=== PATIENT | male | born 1965 | race Caucasian/White ===

== ENCOUNTER 2020-05-22 17:43 | Inpatient (IN) | payer MEDICAID ==
[2020-05-22] MEDS ORDERED: Docusate Sodium 100 MG Cap PO PRN (18:16)
[2020-05-22] MEDS ORDERED: Diclofenac Sodium 1% Gel 100 GM Tube TOP PRN (18:16)
[2020-05-22] MEDS ORDERED: Sodium Chloride 0.9% 10 ML Syringe FLUSH PRN (18:18)
[2020-05-22] MEDS ORDERED: Ondansetron 4 MG/2 ML SDV IV PRN (18:18)
[2020-05-22] MEDS ORDERED: Magnesium Hydroxide 400 MG/5 ML Susp 30 ML Cup PO PRN (18:18)
[2020-05-22] MEDS ORDERED: Benzonatate 100 MG Cap PO PRN (18:18)
[2020-05-22] MEDS ORDERED: Ondansetron 4 MG Tab.DIS PO PRN (18:18)
[2020-05-22] MEDS ORDERED: LORazepam 2 MG/ML SDV IVPUSH PRN (18:18)
[2020-05-22] MEDS ORDERED: guaiFENesin/Dextromethorphan 100-10 MG/5 ML Soln 10 ML Cup PO PRN (18:18)
--- NOTE | 2020-05-22 18:29 | PCM.HP.2 ---
H&P History of Present Illness - General Date of Service: 05/22/20 Admit Problem/Dx: Admission Diagnosis/Problem Admission Diagnosis/Problem Pneumonia Source of Information: Patient, Family, RN Notes Reviewed - History of Present Illness Initial Comments - Free Text/Narative: CC: I have such a bad headache HPI: Favian presents as a direct admission from [facility]. He has been there since 08 May receiving treatment for both alcohol and methamphetamine abuse. He tested positive for Covid on May 17 after he developed headache, low-grade fever and cough. Over the past several days he has had a slow progression of symptoms. He has had a nearly constant headache with some ups and downs. This is a moderate diffuse achy pain in his head that does get better after Tylenol and ibuprofen. Coughing makes his headache much worse. He has an occasional dry cough. He does not feel short of breath at rest but gets short of breath with any activity. He has not had nausea but has had some diarrhea. He has significant fatigue and poor appetite. He has diffuse arthralgias but no report of myalgias. No abdominal pain unless he is coughing. No edema or rashes. Presumed sick contact was at the [facility]. This afternoon he was noted to be hypoxic with oxygen saturations in the mid to upper 80s on room air. He was sent for management of Covid pneumonia with hypoxic respiratory failure. - Related Data Allergies/Adverse Reactions: Allergies Allergy/AdvReac Type Severity Reaction Status Date / Time No Known Allergies Allergy Verified 05/22/20 18:06 Home Medications: Home Meds Acetaminophen [Acetaminophen Extra Strength] 500 - 1,000 mg PO ASDIRECTED PRN 05/22/20 [History] Acetylcysteine [Nac] 600 mg PO DAILY 05/22/20 [History] Cetirizine HCl 10 mg PO DAILY 05/22/20 [History] Cholecalciferol (Vitamin D3) [Vitamin D3] 250 mcg PO DAILY 05/22/20 [History] Diclofenac Sodium [Voltaren 1% Gel] 2 inch TOP BID PRN 05/22/20 [History] Docusate Sodium 100 mg PO BID PRN 05/22/20 [History] Doxepin [SINEquan] 50 mg PO BEDTIME 05/22/20 [History] Doxycycline Hyclate 100 mg PO BID 05/22/20 [History] Ibuprofen 200 - 400 mg PO ASDIRECTED PRN 05/22/20 [History] [place] Carbonate [[place] Carbonate ER] 450 mg PO DAILY 05/22/20 [History] Losartan [Cozaar] 100 mg PO DAILY 05/22/20 [History] Oxybutynin Chloride [Oxybutynin Chloride ER] 10 mg PO DAILY 05/22/20 [History] Tamsulosin HCl 0.4 mg PO DAILY 05/22/20 [History] Venlafaxine HCl [Venlafaxine ER] 300 mg PO DAILY 05/22/20 [History] Zinc 50 mg PO DAILY 05/22/20 [History] rOPINIRole [Requip] 2 mg PO BEDTIME 05/22/20 [History] risperiDONE [Risperidone] 1 mg PO BEDTIME 05/22/20 [History] Past Medical History Cardiovascular History: Reports: Hypertension Genitourinary History: Reports: BPH Psychiatric History: Reports: Depression, Suicide Attempt - Past Surgical History GI Surgical History: Reports: Cholecystectomy, Other (See Below) (splenectomy) Social & Family History - Family History Cardiac: Reports: CAD (dad) - Tobacco Use Tobacco Use Within Last Twelve Months: No - Alcohol Use Alcohol Use History: Yes Alcohol Use in Last Twelve Months: Yes Alcohol Use Frequency: Binges - Recreational Drug Use Recreational Drug Use: Yes Drug Use in Last 12 Months: Yes Recreational Drug Type: Reports: Methamphetamine H&P Review of Systems - Review of Systems: Review Of Systems: See Below Free Text/Narrative: A complete 12 point review of systems was obtained. Pertinent positives and negatives are noted in the history of present illness. All other systems were reviewed and were negative except as noted. Exam - Exam Exam: See Below - Vital Signs Vital Signs: Last Vital Signs Temp 39.0 C H 05/22/20 18:11 Pulse 99 05/22/20 18:11 Resp 24 H 05/22/20 18:11 BP 138/82 05/22/20 18:11 Pulse Ox 94 L 05/22/20 18:11 - Exam Quality Assessment: Supplemental Oxygen General: Alert, Oriented, Cooperative. No: Mild Distress HEENT: No: Mucosa Moist & [place] (dry), Scleral Icterus Neck: Supple, Trachea Midline Lungs: Clear to Auscultation, Normal Respiratory Effort Cardiovascular: Regular Rate, Regular Rhythm. No: Systolic Murmur GI/Abdominal Exam: Normal Bowel Sounds, Soft, Non-Tender, No Distention Back Exam: Normal Inspection, Full Range of Motion Extremities: No Pedal Edema. No: Increased Warmth Peripheral Pulses: 2+: Dorsalis Pedis (L), Dorsalis Pedis (R) Skin: Warm, Dry Neuro Extensive - Mental Status: Alert, Oriented x3, Nl Response to Commands Neuro Extensive - Motor, Sensory, Reflexes: No: Dysarthria, Abnormal Motor, Tremor Psychiatric: Alert, Normal Affect Sepsis Event Note - Focused Exam Vital Signs: Vital Signs Temp Pulse Resp BP Pulse Ox 05/22/20 18:11 39.0 C H 99 24 H 138/82 94 L *Q Meaningful Use (ADM) - VTE Risk Assess *Q Each Risk Factor Represents 1 Point: Age 41 - 59 years, Obesity ( BMI > 25 kg/m2), Serious lung disease including pneumonia Total Score 1 Point Risk Factors: 3 Each Risk Factor Represents 2 Points: None Total Score 2 Point Risk Factors: 0 Each Risk Factor Represents 3 Points: None Total Score 3 Point Risk Factors: 0 Each Risk Factor Represents 5 Points: None Total Score 5 Point Risk Factors: 0 Venous Thromboembolism Risk Factor Score *Q: 3 - Problem List (1) Pneumonia due to COVID-19 virus SNOMED Code(s): 061596240979592182 ICD Code: U07.1 - COVID-19; J12.82 - PNEUMONIA DUE TO CORONAVIRUS DISEASE 2018 Status: Acute Current Visit: Yes (2) Acute respiratory failure due to COVID-19 SNOMED Code(s): 993809072 ICD Code: U07.1 - COVID-19; J96.00 - ACUTE RESPIRATORY FAILURE, UNSP W HYPOXIA OR HYPERCAPNIA Status: Acute Current Visit: Yes (3) BPH loc w urin obs/LUTS SNOMED Code(s): 455263262 ICD Code: N40.1 - BENIGN PROSTATIC HYPERPLASIA WITH LOWER URINARY TRACT SYMP Status: Chronic Current Visit: Yes (4) Essential hypertension SNOMED Code(s): 65937668 ICD Code: I10 - ESSENTIAL (PRIMARY) HYPERTENSION Status: Chronic Current Visit: Yes (5) LUTHER (obstructive sleep apnea) SNOMED Code(s): 85004978 ICD Code: G47.33 - OBSTRUCTIVE SLEEP APNEA (ADULT) (PEDIATRIC) Status: Chronic Current Visit: Yes (6) Methamphetamine abuse in remission SNOMED Code(s): 420635759, 8072318069203 ICD Code: F15.11 - OTHER STIMULANT ABUSE, IN REMISSION Status: Chronic Current Visit: Yes (7) Alcohol dependence in remission Status: Chronic Current Visit: Yes Problem List Initiated/Reviewed/Updated: Yes Orders Last 24hrs: Active Orders 24 hr Category Date Time Status Patient Status [ADT] Routine ADT 05/22/20 18:18 Ordered Height and Weight [RC] DAILY Care 05/22/20 18:18 Ordered Intake and Output [RC] QSHIFT Care 05/22/20 18:18 Ordered Notify Provider Vital Signs [RC] ASDIRECTED Care 05/22/20 18:18 Ordered Nurse Communication: Isolation [RC] ASDIRECTED Care 05/22/20 18:22 Ordered Oxygen Therapy [RC] PRN Care 05/22/20 18:18 Ordered Pulse Oximetry [RC] CONTINUOUS Care 05/22/20 18:19 Ordered Up With Assistance [RC] ASDIRECTED Care 05/22/20 18:18 Ordered VTE/DVT Education [RC] Per Unit Routine Care 05/22/20 18:18 Ordered Vital Signs [RC] Q4H Care 05/22/20 18:18 Ordered Regular Diet [DIET] Diet 05/22/20 Dinner Ordered C-REACTIVE PROTEIN [CHEM] Routine Lab 05/22/20 18:21 Ordered CBC W/O DIFF,HEMOGRAM [HEME] AM Lab 05/23/20 05:11 Ordered CBC WITH AUTO DIFF [HEME] Routine Lab 05/22/20 18:18 Ordered COMPREHENSIVE METABOLIC PN,CMP [CHEM] AM Lab 05/23/20 05:11 Ordered COMPREHENSIVE METABOLIC PN,CMP [CHEM] Routine Lab 05/22/20 18:18 Ordered D-DIMER QUANTITATIVE [COAG] Routine Lab 05/22/20 18:21 Ordered LACTATE DEHYDROGENASE,LDH [CHEM] Routine Lab 05/22/20 18:22 Ordered MAGNESIUM [CHEM] Routine Lab 05/22/20 18:18 Ordered PROCALCITONIN [CHEM] Routine Lab 05/22/20 18:24 Ordered Acetaminophen [TylenoL] Med 05/22/20 18:18 Ordered 650 mg PO Q4H PRN Acetylcysteine [Nac] Med 05/23/20 09:00 Ordered 600 mg PO DAILY Benzonatate [Tessalon Perles] Med 05/22/20 18:18 Ordered 100 mg PO TID PRN Cetirizine [ZyrTEC] Med 05/23/20 09:00 Ordered 10 mg PO DAILY Cholecalciferol (Vitamin D3) [Vitamin D3] Med 05/23/20 09:00 Ordered 250 mcg PO DAILY Dextromethorphan/guaiFENesin [Robitussin DM] Med 05/22/20 18:18 Ordered 10 ml PO Q4H PRN Diclofenac Sodium [Voltaren 1% Gel] Med 05/22/20 18:16 Ordered 2 inch TOP BID PRN Docusate Sodium [Colace] Med 05/22/20 18:16 Ordered 100 mg PO BID PRN Doxepin [SINEquan] Med 05/22/20 21:00 Ordered 50 mg PO BEDTIME Doxycycline [Vibramycin] Med 05/22/20 21:00 Ordered 100 mg PO BID Enoxaparin [Lovenox] Med 05/22/20 19:00 Ordered 40 mg SUBCUT Q24H LORazepam [Ativan] Med 05/22/20 18:18 Ordered 0.5 mg IVPUSH Q4H PRN [place] Carbonate [[place] Carbonate ER] Med 05/23/20 09:00 Ordered 450 mg PO DAILY Losartan [Cozaar] Med 05/23/20 09:00 Ordered 100 mg PO DAILY Magnesium Hydroxide [Milk of Magnesia] Med 05/22/20 18:18 Ordered 30 ml PO Q12H PRN Ondansetron [Zofran ODT] Med 05/22/20 18:18 Ordered 4 mg PO Q6H PRN Ondansetron [Zofran] Med 05/22/20 18:18 Ordered 4 mg IV Q6H PRN Oxybutynin Chloride [Oxybutynin Chloride ER] Med 05/23/20 09:00 Ordered 10 mg PO DAILY Pantoprazole [ProTONIX] Med 05/23/20 07:30 Ordered 40 mg PO ACBREAKFAST Remdesivir 100 mg Med 05/23/20 19:00 Ordered Sodium Chloride 0.9% [Normal Saline] 100 ml IV Q24H Remdesivir 200 mg Med 05/22/20 18:18 Ordered Sodium Chloride 0.9% [Normal Saline] 250 ml IV ONETIME Sodium Chloride 0.9% [Saline Flush] Med 05/22/20 18:18 Ordered 10 ml FLUSH ASDIRECTED PRN Tamsulosin [Flomax] Med 05/23/20 09:00 Ordered 0.4 mg PO DAILY Venlafaxine HCl [Venlafaxine ER] Med 05/23/20 09:00 Ordered 300 mg PO DAILY Zinc [Zinc] Med 05/23/20 09:00 Ordered 50 mg PO DAILY dexAMETHasone [Decadron] Med 05/22/20 18:30 Ordered 6 mg IVPUSH Q24H rOPINIRole [Requip] Med 05/22/20 21:00 Ordered 2 mg PO BEDTIME risperiDONE [RisperiDAL] Med 05/22/20 21:00 Ordered 1 mg PO BEDTIME Isolation [COMM] Routine Oth 05/22/20 18:22 Ordered Saline Lock Insert [OM.PC] Urgent Oth 05/22/20 18:18 Ordered Resuscitation Status Routine Resus Stat 05/22/20 18:18 Ordered Medication Orders Acetaminophen (Tylenol) 650 mg PO Q4H PRN PRN Reason: Pain (Mild 1-3)/fever Cetirizine HCl (Zyrtec) 10 mg PO DAILY [facility] Diclofenac Sodium (Voltaren 1% Gel) gm TOP BID PRN PRN Reason: joint pain Enoxaparin Sodium (Lovenox) 40 mg SUBCUT Q24H [facility] Remdesivir 200 mg/ Sodium (Chloride) 250 mls @ 250 mls/hr IV ONETIME ONE Stop: 05/22/20 18:19 Remdesivir 100 mg/ Sodium (Chloride) 100 mls @ 100 mls/hr IV Q24H DAISHA Stop: 05/26/20 19:59 Lorazepam (Ativan) 0.5 mg IVPUSH Q4H PRN PRN Reason: Nausea/Vomiting Magnesium Hydroxide (Milk Of Magnesia) 30 ml PO Q12H PRN PRN Reason: Constipation Non-Formulary Medication (Oxybutynin Chloride [Oxybutynin Chloride Er]) 10 mg PO DAILY [facility] Non-Formulary Medication (Venlafaxine Hcl [Venlafaxine Er]) 300 mg PO DAILY [facility] Non-Formulary Medication (Zinc [Zinc]) 50 mg PO DAILY [facility] Non-Formulary Medication (Acetylcysteine [Nac]) 600 mg PO DAILY [facility] Non-Formulary Medication (Cholecalciferol (Vitamin D3) [Vitamin D3]) 250 mcg PO DAILY [facility] Ondansetron HCl (Zofran) 4 mg IV Q6H PRN PRN Reason: Nausea/Vomiting Ondansetron HCl (Zofran Odt) 4 mg PO Q6H PRN PRN Reason: Nausea able to take PO Pantoprazole Sodium (Protonix) 40 mg PO ACBREAKFAST DAISHA Risperidone (Risperidal) 1 mg PO BEDTIME DAISHA Ropinirole HCl (Requip) 2 mg PO BEDTIME DAISHA Sodium Chloride (Saline Flush) 10 ml FLUSH ASDIRECTED PRN PRN Reason: Keep Vein Open Tamsulosin HCl (Flomax) 0.4 mg PO DAILY DAISHA Assessment/Plan Comment:: ASSESSMENT AND PLAN - COVID-19 pneumonia-complicated by acute respiratory failure with hypoxia. He is about 5 days into his illness. Multiple manifestations outlined in the HPI. He is hypoxic and would benefit from treatment with steroids and remdesivir. We did discuss remdesivir and its availability under an emergency use authorization. We did discuss potential risks and benefits. He was interested in treatment with remdesivir. -Baseline labs including CMP, CBC, D-dimer, LDH and CRP -Chest x-ray if he has a further decline in his respiratory status -Dexamethasone every 24 hours -Remdesivir x5 days -Enoxaparin every 24 hours -Symptomatic management of cough -Limit fluids -Isolation precautions through at least May 27 History of alcohol and methamphetamine use and abuse-sober for about 3 weeks. No evidence for withdrawal at this time. Essential hypertension-blood pressure has been stable at the treatment facility. -Continue home medications BPH with lower urinary tract symptoms-stable. -Continue home medications Obstructive sleep apnea-severe disease at this time. Chronically uses CPAP. History of severe depression-also previous suicide attempt. Mood is currently stable. -Continue home medications Maintenance issues - - DVT prophylaxis -enoxaparin - GI prophylaxis -PPI since he will be on steroids - Nutrition -regular - [place] catheter -not indicated CODE STATUS -full code Admission justification -this patient will be admitted for inpatient services and is medically appropriate meeting medical necessity for inpatient admission as outlined in my documentation. I reasonably expect the patient will require inpatient services that span a period time over 2 midnights. I reasonably expect this patient to be discharged or transferred within 96 hours [facility]. Disposition -I would anticipate discharge either back to the treatment facility or potentially home after the hospital stay Primary care physician -no local primary care Lawrence Dumont M.D. - Mortality Measure Prognosis:: Good
[2020-05-22] MEDS: Acetaminophen 325 MG Tab PO PRN (19:27)
[2020-05-22] MEDS ORDERED: REMDESIVIR 200 MG in Sodium Chloride 0.9% 250 ML IV ONE (20:00)
[2020-05-22] MEDS: Dexamethasone 4 MG/ML SDV IVPUSH SCH (20:47)
[2020-05-22] MEDS: Enoxaparin 40 MG/0.4 ML Syringe SUBCUT SCH (20:48)
[2020-05-22] MEDS: Doxycycline 100 MG Cap PO SCH (20:49)
[2020-05-22] MEDS: rOPINIRole 1 MG Tab PO SCH (20:49)
[2020-05-22] MEDS: risperiDONE 1 MG Tab PO SCH (20:49)
[2020-05-22] MEDS: Doxepin 25 MG Cap PO SCH (20:49)
[2020-05-22] MEDS ORDERED: Albuterol 8 GM Inhaler INH PRN (22:45)
[2020-05-22] MEDS ORDERED: Ketorolac 30 MG/ML SDV IVPUSH ONE (23:00)
[2020-05-23] MEDS ORDERED: FLU VACC QS2020-21(6MOS UP)/PF 60 MCG/0.5 ML SYRINGE IM ONE (09:00)
[2020-05-23] MEDS ORDERED: Non-Formulary Medication 1 Each (Acetylcysteine [Nac] 600 MG) PO SCH (09:00)
[2020-05-23] MEDS: Losartan 50 MG Tab PO SCH (09:20)
[2020-05-23] MEDS: Cetirizine 10 MG Tab PO SCH (09:20)
[2020-05-23] MEDS: Tamsulosin 0.4 MG Cap.ER PO SCH (09:20)
[2020-05-23] MEDS: Pantoprazole 40 MG Tab.CR PO SCH (09:20)
[2020-05-23] MEDS: Venlafaxine 75 MG Cap.ER PO SCH (09:20)
[2020-05-23] MEDS: Oxybutynin 5 MG Tab PO SCH ×2 (09:20→21:03)
[2020-05-23] MEDS: Zinc (Zinc Gluconate) 50 MG Tab PO SCH (09:20)
[2020-05-23] MEDS: Cholecalciferol (Vitamin D3) 25 MCG Tab PO SCH (09:21)
[2020-05-23] MEDS: Doxycycline 100 MG Cap PO SCH ×2 (09:53→21:03)
--- NOTE | 2020-05-23 10:46 | PCM.PN ---
- General Info Date of Service: 05/23/20 Subjective Update: There were no acute events overnight following admission. He has been stable on 3 L of supplemental oxygen. He reports that he feels quite a bit better today. His headache is down to a very mild level. No nausea and no diarrhea. Cough is rare and mild. He does not feel significantly short of breath today. He did have a fever overnight but this has resolved after dose of Toradol and his temperature has remained normal. D-dimer and CRP were mildly elevated last night. Functional Status: Reports: Pain Controlled, Tolerating Diet - Review of Systems General: Reports: Fever Gastrointestinal: Denies: Diarrhea - Patient Data Vitals - Most Recent: Last Vital Signs Temp 36.7 C 05/23/20 09:35 Pulse 77 05/23/20 09:35 Resp 18 05/23/20 09:35 BP 126/77 05/23/20 09:35 Pulse Ox 94 L 05/23/20 09:35 Weight - Most Recent: 145.15 kg I&O - Last 24 Hours: Intake & Output 05/22/20 05/23/20 05/23/20 22:59 06:59 14:59 Intake Total 800 Output Total 700 Balance 100 Lab Results Last 24 Hours: Laboratory Results - last 24 hr 05/22/20 05/22/20 05/22/20 Range/Units 18:48 18:48 18:48 WBC 5.3 (4.5-11.0) K/uL RBC 4.56 (4.30-5.90) M/uL Hgb 14.0 (12.0-15.0) g/dL Hct 42.5 (40.0-54.0) % MCV 93 (80-98) fL MCH 31 (27-31) pg MCHC 33 (32-36) % Plt Count 228 (150-400) K/uL Neut % (Auto) 77 H (36-66) % Lymph % (Auto) 15 L (24-44) % [place] % (Auto) 8 H (2-6) % Eos % (Auto) 0 L (2-4) % Baso % (Auto) 0 (0-1) % D-Dimer, Quantitative 685.65 H (0.0-500.0) ng/mL Sodium 133 L (140-148) mmol/L Potassium 3.8 (3.6-5.2) mmol/L Chloride 99 L (100-108) mmol/L Carbon Dioxide 24 (21-32) mmol/L Anion Gap 13.8 (5.0-14.0) mmol/L BUN 14 (7-18) mg/dL Creatinine 1.3 (0.8-1.3) mg/dL Est Cr Clr Drug Dosing 68.81 mL/min Estimated GFR (MDRD) 57 L (>60) Glucose 83 (74-106) mg/dL Calcium 8.2 L (8.5-10.1) mg/dL Magnesium 1.7 L (1.8-2.4) mg/dL Total Bilirubin 0.1 L (0.2-1.0) mg/dL AST 90 H (15-37) U/L ALT 86 H (12-78) U/L Alkaline Phosphatase 87 (46-116) U/L Lactate Dehydrogenase (85-227) U/L C-Reactive Protein (0.0-0.3) mg/dL Total Protein 6.3 L (6.4-8.2) g/dL Albumin 2.7 L (3.4-5.0) g/dL Globulin 3.6 H (2.3-3.5) g/dL Albumin/Globulin Ratio 0.8 L (1.2-2.2) Procalcitonin ng/mL 05/22/20 05/22/20 05/22/20 Range/Units 18:48 18:48 18:48 WBC (4.5-11.0) K/uL RBC (4.30-5.90) M/uL Hgb (12.0-15.0) g/dL Hct (40.0-54.0) % MCV (80-98) fL MCH (27-31) pg MCHC (32-36) % Plt Count (150-400) K/uL Neut % (Auto) (36-66) % Lymph % (Auto) (24-44) % [place] % (Auto) (2-6) % Eos % (Auto) (2-4) % Baso % (Auto) (0-1) % D-Dimer, Quantitative (0.0-500.0) ng/mL Sodium (140-148) mmol/L Potassium (3.6-5.2) mmol/L Chloride (100-108) mmol/L Carbon Dioxide (21-32) mmol/L Anion Gap (5.0-14.0) mmol/L BUN (7-18) mg/dL Creatinine (0.8-1.3) mg/dL Est Cr Clr Drug Dosing mL/min Estimated GFR (MDRD) (>60) Glucose (74-106) mg/dL Calcium (8.5-10.1) mg/dL Magnesium (1.8-2.4) mg/dL Total Bilirubin (0.2-1.0) mg/dL AST (15-37) U/L ALT (12-78) U/L Alkaline Phosphatase (46-116) U/L Lactate Dehydrogenase 330 H (85-227) U/L C-Reactive Protein 5.90 H (0.0-0.3) mg/dL Total Protein (6.4-8.2) g/dL Albumin (3.4-5.0) g/dL Globulin (2.3-3.5) g/dL Albumin/Globulin Ratio (1.2-2.2) Procalcitonin 0.12 ng/mL 05/23/20 05/23/20 Range/Units 04:40 04:40 WBC 4.6 (4.5-11.0) K/uL RBC 4.76 (4.30-5.90) M/uL Hgb 14.9 (12.0-15.0) g/dL Hct 43.9 (40.0-54.0) % MCV 92 (80-98) fL MCH 31 (27-31) pg MCHC 34 (32-36) % Plt Count 254 (150-400) K/uL Neut % (Auto) (36-66) % Lymph % (Auto) (24-44) % [place] % (Auto) (2-6) % Eos % (Auto) (2-4) % Baso % (Auto) (0-1) % D-Dimer, Quantitative (0.0-500.0) ng/mL Sodium 134 L (140-148) mmol/L Potassium 4.3 (3.6-5.2) mmol/L Chloride 103 (100-108) mmol/L Carbon Dioxide 20 L (21-32) mmol/L Anion Gap 15.3 H (5.0-14.0) mmol/L BUN 20 H (7-18) mg/dL Creatinine 1.2 (0.8-1.3) mg/dL Est Cr Clr Drug Dosing 74.55 mL/min Estimated GFR (MDRD) > 60 (>60) Glucose 150 H (74-106) mg/dL Calcium 8.8 (8.5-10.1) mg/dL Magnesium (1.8-2.4) mg/dL Total Bilirubin 0.1 L (0.2-1.0) mg/dL AST 102 H (15-37) U/L ALT 101 H (12-78) U/L Alkaline Phosphatase 88 (46-116) U/L Lactate Dehydrogenase (85-227) U/L C-Reactive Protein (0.0-0.3) mg/dL Total Protein 6.6 (6.4-8.2) g/dL Albumin 2.8 L (3.4-5.0) g/dL Globulin 3.8 H (2.3-3.5) g/dL Albumin/Globulin Ratio 0.7 L (1.2-2.2) Procalcitonin ng/mL Med Orders - Current: Current Medications Acetaminophen (Tylenol) 650 mg PO Q4H PRN PRN Reason: Pain (Mild 1-3)/fever Last Admin: 05/22/20 19:27 Dose: 650 mg Documented by: Albuterol (Ventolin Hfa) 0 gm INH Q4H PRN PRN Reason: Shortness of Breath Last Admin: 05/22/20 23:20 Dose: 2 puff Documented by: Benzonatate (Tessalon Perles) 100 mg PO TID PRN PRN Reason: Cough Cetirizine HCl (Zyrtec) 10 mg PO DAILY [facility] Last Admin: 05/23/20 09:20 Dose: 10 mg Documented by: Cholecalciferol (Vitamin D3) 250 mcg PO DAILY [facility] Last Admin: 05/23/20 09:21 Dose: 250 mcg Documented by: Dexamethasone (Decadron) 6 mg IVPUSH Q24H [facility] Last Admin: 05/22/20 20:47 Dose: 6 mg Documented by: Diclofenac Sodium (Voltaren 1% Gel) 0 gm TOP BID PRN PRN Reason: joint pain Last Admin: 05/22/20 23:19 Dose: 1 applic Documented by: Docusate Sodium (Colace) 100 mg PO BID PRN PRN Reason: Constipation Last Admin: 05/23/20 09:20 Dose: 100 mg Documented by: Doxepin HCl (Sinequan) 50 mg PO BEDTIME [facility] Last Admin: 05/22/20 20:49 Dose: 50 mg Documented by: Doxycycline Hyclate (Vibramycin) 100 mg PO BID [facility] Last Admin: 05/23/20 09:53 Dose: 100 mg Documented by: Enoxaparin Sodium (Lovenox) 40 mg SUBCUT Q24H [facility] Last Admin: 05/22/20 20:48 Dose: 40 mg Documented by: Guaifenesin/Dextromethorphan (Robitussin Dm) 10 ml PO Q4H PRN PRN Reason: Cough Remdesivir 100 mg/ Sodium (Chloride) 100 mls @ 100 mls/hr IV Q24H [facility] Stop: 05/26/20 20:59 [place] Carbonate ([place] Carbonate) 450 mg PO DAILY [facility] Last Admin: 05/23/20 09:19 Dose: 450 mg Documented by: Lorazepam (Ativan) 0.5 mg IVPUSH Q4H PRN PRN Reason: Nausea/Vomiting Losartan Potassium (Cozaar) 100 mg PO DAILY [facility] Last Admin: 05/23/20 09:20 Dose: 100 mg Documented by: Magnesium Hydroxide (Milk Of Magnesia) 30 ml PO Q12H PRN PRN Reason: Constipation Ondansetron HCl (Zofran) 4 mg IV Q6H PRN PRN Reason: Nausea/Vomiting Ondansetron HCl (Zofran Odt) 4 mg PO Q6H PRN PRN Reason: Nausea able to take PO Oxybutynin Chloride (Oxybutynin) 5 mg PO BID [facility] Last Admin: 05/23/20 09:20 Dose: 5 mg Documented by: Pantoprazole Sodium (Protonix) 40 mg PO ACBREAKFAST [facility] Last Admin: 05/23/20 09:20 Dose: 40 mg Documented by: Risperidone (Risperidal) 1 mg PO BEDTIME [facility] Last Admin: 05/22/20 20:49 Dose: 1 mg Documented by: Ropinirole HCl (Requip) 2 mg PO BEDTIME [facility] Last Admin: 05/22/20 20:49 Dose: 2 mg Documented by: Sodium Chloride (Saline Flush) 10 ml FLUSH ASDIRECTED PRN PRN Reason: Keep Vein Open Tamsulosin HCl (Flomax) 0.4 mg PO DAILY [facility] Last Admin: 05/23/20 09:20 Dose: 0.4 mg Documented by: Venlafaxine HCl (Effexor Xr) 300 mg PO DAILY [facility] Last Admin: 05/23/20 09:20 Dose: 300 mg Documented by: Zinc Gluconate (Zinc) 50 mg PO DAILY [facility] Last Admin: 05/23/20 09:20 Dose: 50 mg Documented by: Discontinued Medications Remdesivir 200 mg/ Sodium (Chloride) 250 mls @ 250 mls/hr IV ONETIME ONE Stop: 05/22/20 20:59 Last Admin: 05/22/20 20:47 Dose: 250 mls/hr Documented by: Influenza Virus Vaccine (Pharmacy To Dose - Influenza Vaccine) 1 each IM ONETIME ONE Stop: 05/23/20 09:01 Influenza Virus Vaccine (Fluzone Quad [id number] Syringe) 60 mcg IM .ONCE ONE Stop: 05/23/20 09:01 Ketorolac Tromethamine (Toradol) 30 mg IVPUSH ONETIME ONE Stop: 05/22/20 23:01 Last Admin: 05/22/20 23:19 Dose: 30 mg Documented by: Non-Formulary Medication (Acetylcysteine [Nac]) 600 mg PO DAILY [facility] - Exam Quality Assessment: Supplemental Oxygen General: Alert, Oriented, Cooperative, No Acute Distress Lungs: Normal Respiratory Effort. No: Wheezing Cardiovascular: Regular Rate, Regular Rhythm GI/Abdominal Exam: Soft, No Distention Extremities: No Pedal Edema. No: Increased Warmth Skin: Warm, Dry Psy/Mental Status: Alert, Normal Affect - Patient Data Lab Results Last 24 hrs: Laboratory Results - last 24 hr 05/22/20 05/22/20 05/22/20 Range/Units 18:48 18:48 18:48 WBC 5.3 (4.5-11.0) K/uL RBC 4.56 (4.30-5.90) M/uL Hgb 14.0 (12.0-15.0) g/dL Hct 42.5 (40.0-54.0) % MCV 93 (80-98) fL MCH 31 (27-31) pg MCHC 33 (32-36) % Plt Count 228 (150-400) K/uL Neut % (Auto) 77 H (36-66) % Lymph % (Auto) 15 L (24-44) % [place] % (Auto) 8 H (2-6) % Eos % (Auto) 0 L (2-4) % Baso % (Auto) 0 (0-1) % D-Dimer, Quantitative 685.65 H (0.0-500.0) ng/mL Sodium 133 L (140-148) mmol/L Potassium 3.8 (3.6-5.2) mmol/L Chloride 99 L (100-108) mmol/L Carbon Dioxide 24 (21-32) mmol/L Anion Gap 13.8 (5.0-14.0) mmol/L BUN 14 (7-18) mg/dL Creatinine 1.3 (0.8-1.3) mg/dL Est Cr Clr Drug Dosing 68.81 mL/min Estimated GFR (MDRD) 57 L (>60) Glucose 83 (74-106) mg/dL Calcium 8.2 L (8.5-10.1) mg/dL Magnesium 1.7 L (1.8-2.4) mg/dL Total Bilirubin 0.1 L (0.2-1.0) mg/dL AST 90 H (15-37) U/L ALT 86 H (12-78) U/L Alkaline Phosphatase 87 (46-116) U/L Lactate Dehydrogenase (85-227) U/L C-Reactive Protein (0.0-0.3) mg/dL Total Protein 6.3 L (6.4-8.2) g/dL Albumin 2.7 L (3.4-5.0) g/dL Globulin 3.6 H (2.3-3.5) g/dL Albumin/Globulin Ratio 0.8 L (1.2-2.2) Procalcitonin ng/mL 05/22/20 05/22/20 05/22/20 Range/Units 18:48 18:48 18:48 WBC (4.5-11.0) K/uL RBC (4.30-5.90) M/uL Hgb (12.0-15.0) g/dL Hct (40.0-54.0) % MCV (80-98) fL MCH (27-31) pg MCHC (32-36) % Plt Count (150-400) K/uL Neut % (Auto) (36-66) % Lymph % (Auto) (24-44) % [place] % (Auto) (2-6) % Eos % (Auto) (2-4) % Baso % (Auto) (0-1) % D-Dimer, Quantitative (0.0-500.0) ng/mL Sodium (140-148) mmol/L Potassium (3.6-5.2) mmol/L Chloride (100-108) mmol/L Carbon Dioxide (21-32) mmol/L Anion Gap (5.0-14.0) mmol/L BUN (7-18) mg/dL Creatinine (0.8-1.3) mg/dL Est Cr Clr Drug Dosing mL/min Estimated GFR (MDRD) (>60) Glucose (74-106) mg/dL Calcium (8.5-10.1) mg/dL Magnesium (1.8-2.4) mg/dL Total Bilirubin (0.2-1.0) mg/dL AST (15-37) U/L ALT (12-78) U/L Alkaline Phosphatase (46-116) U/L Lactate Dehydrogenase 330 H (85-227) U/L C-Reactive Protein 5.90 H (0.0-0.3) mg/dL Total Protein (6.4-8.2) g/dL Albumin (3.4-5.0) g/dL Globulin (2.3-3.5) g/dL Albumin/Globulin Ratio (1.2-2.2) Procalcitonin 0.12 ng/mL 05/23/20 05/23/20 Range/Units 04:40 04:40 WBC 4.6 (4.5-11.0) K/uL RBC 4.76 (4.30-5.90) M/uL Hgb 14.9 (12.0-15.0) g/dL Hct 43.9 (40.0-54.0) % MCV 92 (80-98) fL MCH 31 (27-31) pg MCHC 34 (32-36) % Plt Count 254 (150-400) K/uL Neut % (Auto) (36-66) % Lymph % (Auto) (24-44) % [place] % (Auto) (2-6) % Eos % (Auto) (2-4) % Baso % (Auto) (0-1) % D-Dimer, Quantitative (0.0-500.0) ng/mL Sodium 134 L (140-148) mmol/L Potassium 4.3 (3.6-5.2) mmol/L Chloride 103 (100-108) mmol/L Carbon Dioxide 20 L (21-32) mmol/L Anion Gap 15.3 H (5.0-14.0) mmol/L BUN 20 H (7-18) mg/dL Creatinine 1.2 (0.8-1.3) mg/dL Est Cr Clr Drug Dosing 74.55 mL/min Estimated GFR (MDRD) > 60 (>60) Glucose 150 H (74-106) mg/dL Calcium 8.8 (8.5-10.1) mg/dL Magnesium (1.8-2.4) mg/dL Total Bilirubin 0.1 L (0.2-1.0) mg/dL AST 102 H (15-37) U/L ALT 101 H (12-78) U/L Alkaline Phosphatase 88 (46-116) U/L Lactate Dehydrogenase (85-227) U/L C-Reactive Protein (0.0-0.3) mg/dL Total Protein 6.6 (6.4-8.2) g/dL Albumin 2.8 L (3.4-5.0) g/dL Globulin 3.8 H (2.3-3.5) g/dL Albumin/Globulin Ratio 0.7 L (1.2-2.2) Procalcitonin ng/mL Result Diagrams: 05/23/20 04:40 05/23/20 04:40 Sepsis Event Note - Evaluation Sepsis Screening Result: No Definite Risk - Focused Exam Vital Signs: Vital Signs Temp Pulse Resp BP BP Pulse Ox 05/23/20 09:35 36.7 C 77 18 126/77 94 L 05/23/20 09:20 126/77 05/23/20 07:14 92 L 05/23/20 02:00 36.3 C 73 18 105/58 L 96 05/23/20 01:19 93 L - Problem List & Annotations (1) Pneumonia due to COVID-19 virus SNOMED Code(s): 649615984737520346 Code(s): U07.1 - COVID-19; J12.82 - PNEUMONIA DUE TO CORONAVIRUS DISEASE 2018 Status: Acute Current Visit: Yes (2) Acute respiratory failure due to COVID-19 SNOMED Code(s): 749313609 Code(s): U07.1 - COVID-19; J96.00 - ACUTE RESPIRATORY FAILURE, UNSP W HYPOXIA OR HYPERCAPNIA Status: Acute Current Visit: Yes (3) BPH loc w urin obs/LUTS SNOMED Code(s): 724764696 Code(s): N40.1 - BENIGN PROSTATIC HYPERPLASIA WITH LOWER URINARY TRACT SYMP Status: Chronic Current Visit: Yes (4) Essential hypertension SNOMED Code(s): 90450642 Code(s): I10 - ESSENTIAL (PRIMARY) HYPERTENSION Status: Chronic Current Visit: Yes (5) LUTHER (obstructive sleep apnea) SNOMED Code(s): 15937924 Code(s): G47.33 - OBSTRUCTIVE SLEEP APNEA (ADULT) (PEDIATRIC) Status: Chronic Current Visit: Yes (6) Methamphetamine abuse in remission SNOMED Code(s): 402101344, 4241932028339 Code(s): F15.11 - OTHER STIMULANT ABUSE, IN REMISSION Status: Chronic Current Visit: Yes (7) Alcohol dependence in remission Status: Chronic Current Visit: Yes - Problem List Review Problem List Initiated/Reviewed/Updated: Yes - My Orders Last 24 Hours: My Active Orders 05/22/20 Dinner Regular Diet [DIET] 05/22/20 18:16 Diclofenac Sodium [Voltaren 1% Gel] 0 gm TOP BID PRN Docusate Sodium [Colace] 100 mg PO BID PRN 05/22/20 18:18 Patient Status [ADT] Routine Height and Weight [RC] 0500 Intake and Output [RC] QSHIFT Notify Provider Vital Signs [RC] ASDIRECTED Oxygen Therapy [RC] PRN Up With Assistance [RC] ASDIRECTED VTE/DVT Education [RC] Per Unit Routine Vital Signs [RC] Q4H Acetaminophen [TylenoL] 650 mg PO Q4H PRN Benzonatate [Tessalon Perles] 100 mg PO TID PRN Dextromethorphan/guaiFENesin [Robitussin DM] 10 ml PO Q4H PRN LORazepam [Ativan] 0.5 mg IVPUSH Q4H PRN Magnesium Hydroxide [Milk of Magnesia] 30 ml PO Q12H PRN Ondansetron [Zofran ODT] 4 mg PO Q6H PRN Ondansetron [Zofran] 4 mg IV Q6H PRN Sodium Chloride 0.9% [Saline Flush] 10 ml FLUSH ASDIRECTED PRN Saline Lock Insert [OM.PC] Urgent Resuscitation Status Routine 05/22/20 18:19 Pulse Oximetry [RC] CONTINUOUS 05/22/20 18:22 Nurse Communication: Isolation [RC] ASDIRECTED Isolation [COMM] Routine 05/22/20 18:30 dexAMETHasone [Decadron] 6 mg IVPUSH Q24H 05/22/20 20:17 Influenza Vaccine Charge [RC] .DISCHARGE 05/22/20 21:00 Doxepin [SINEquan] 50 mg PO BEDTIME Doxycycline [Vibramycin] 100 mg PO BID Enoxaparin [Lovenox] 40 mg SUBCUT Q24H rOPINIRole [Requip] 2 mg PO BEDTIME risperiDONE [RisperiDAL] 1 mg PO BEDTIME 05/22/20 22:45 Albuterol [Ventolin HFA] See Dose Instructions INH Q4H PRN 05/22/20 22:46 RT Post Treatment Assessment [RC] Click to Edit 05/23/20 07:30 Pantoprazole [ProTONIX] 40 mg PO ACBREAKFAST 05/23/20 09:00 Cetirizine [ZyrTEC] 10 mg PO DAILY Cholecalciferol (Vitamin D3) [Vitamin D3] 250 mcg PO DAILY [place] Carbonate 450 mg PO DAILY Losartan [Cozaar] 100 mg PO DAILY Oxybutynin 5 mg PO BID Tamsulosin [Flomax] 0.4 mg PO DAILY Venlafaxine [Effexor XR] 300 mg PO DAILY Zinc Gluconate [Zinc] 50 mg PO DAILY 05/23/20 20:00 Remdesivir 100 mg Sodium Chloride 0.9% [Normal Saline] 100 ml IV Q24H 05/24/20 05:00 C-REACTIVE PROTEIN [CHEM] Timed COMPREHENSIVE METABOLIC PN,CMP [CHEM] Timed D-DIMER QUANTITATIVE [COAG] Timed - Plan Plan:: ASSESSMENT AND PLAN - COVID-19 pneumonia-complicated by acute respiratory failure with hypoxia. Onset of symptoms 05/17. Stable overnight. Inflammatory markers only mildly elevated. Still requiring 3 L of oxygen. Symptomatically feeling better. -Recheck D-dimer and CRP tomorrow -Chest x-ray if he has a further decline in his respiratory status -Dexamethasone every 24 hours (day 2) -Remdesivir x5 days (day 2) -Enoxaparin every 24 hours -Symptomatic management of cough -Limit fluids -Isolation precautions through at least May 27 History of alcohol and methamphetamine use and abuse-sober for about 3 weeks. No evidence for withdrawal at this time. Essential hypertension-blood pressure well controlled so far. -Continue home medications BPH with lower urinary tract symptoms-stable. -Continue home medications Obstructive sleep apnea-severe disease at this time. Chronically uses CPAP. History of severe depression-also previous suicide attempt. Mood is currently stable. -Continue home medications Maintenance issues - - DVT prophylaxis -enoxaparin - GI prophylaxis -PPI since he will be on steroids - Nutrition -regular Disposition -I would anticipate discharge either back to the treatment facility or potentially home after the hospital stay Lawrence Dumont M.D.
[2020-05-23] MEDS: Dexamethasone 4 MG/ML SDV IVPUSH SCH (17:41)
[2020-05-23] MEDS: Acetaminophen 325 MG Tab PO PRN (17:47)
[2020-05-23] MEDS: rOPINIRole 1 MG Tab PO SCH (21:03)
[2020-05-23] MEDS: Doxepin 25 MG Cap PO SCH (21:03)
[2020-05-23] MEDS: REMDESIVIR 100 MG in Sodium Chloride 0.9% 100 ML IV SCH (21:03)
[2020-05-23] MEDS: risperiDONE 1 MG Tab PO SCH (21:03)
[2020-05-23] MEDS: Enoxaparin 40 MG/0.4 ML Syringe SUBCUT SCH (21:03)
[2020-05-24] MEDS: Venlafaxine 75 MG Cap.ER PO SCH (08:58)
[2020-05-24] MEDS: Zinc (Zinc Gluconate) 50 MG Tab PO SCH (08:59)
[2020-05-24] MEDS: Doxycycline 100 MG Cap PO SCH ×2 (08:59→21:57)
[2020-05-24] MEDS: Tamsulosin 0.4 MG Cap.ER PO SCH (08:59)
[2020-05-24] MEDS: Cetirizine 10 MG Tab PO SCH (08:59)
[2020-05-24] MEDS: Losartan 50 MG Tab PO SCH (08:59)
[2020-05-24] MEDS: Oxybutynin 5 MG Tab PO SCH ×2 (08:59→21:57)
[2020-05-24] MEDS: Pantoprazole 40 MG Tab.CR PO SCH (08:59)
[2020-05-24] MEDS: Cholecalciferol (Vitamin D3) 25 MCG Tab PO SCH (09:00)
--- NOTE | 2020-05-24 10:53 | PCM.PN ---
- General Info Date of Service: 05/24/20 Subjective Update: No acute events overnight. Symptomatically he is feeling better. Headache is only very mild at this time but not quite resolved. No significant shortness of breath. Rare dry cough. No nausea or diarrhea. No fevers. D-dimer and CRP are improving. Down to 1-1/2 L of supplemental oxygen. Tolerating treatment with steroids and remdesivir so far. Functional Status: Reports: Pain Controlled, Tolerating Diet - Review of Systems General: Denies: Fever Pulmonary: Denies: Shortness of Breath Gastrointestinal: Denies: Diarrhea - Patient Data Vitals - Most Recent: Last Vital Signs Temp 35.0 C L 05/24/20 08:56 Pulse 75 05/24/20 08:56 Resp 16 05/24/20 08:56 BP 125/77 05/24/20 08:59 Pulse Ox 94 L 05/24/20 08:56 Weight - Most Recent: 139.706 kg I&O - Last 24 Hours: Intake & Output 05/23/20 05/24/20 05/24/20 22:59 06:59 14:59 Intake Total 350 Output Total 1750 650 700 Balance -1400 -650 -700 Lab Results Last 24 Hours: Laboratory Results - last 24 hr 05/24/20 05/24/20 Range/Units 05:51 05:51 D-Dimer, Quantitative 427.47 (0.0-500.0) ng/mL Sodium 143 (140-148) mmol/L Potassium 4.5 (3.6-5.2) mmol/L Chloride 108 (100-108) mmol/L Carbon Dioxide 25 (21-32) mmol/L Anion Gap 10.2 (5.0-14.0) mmol/L BUN 16 (7-18) mg/dL Creatinine 1.0 (0.8-1.3) mg/dL Est Cr Clr Drug Dosing 89.58 mL/min Estimated GFR (MDRD) > 60 (>60) Glucose 133 H (74-106) mg/dL Calcium 9.0 (8.5-10.1) mg/dL Total Bilirubin 0.1 L (0.2-1.0) mg/dL AST 72 H (15-37) U/L ALT 92 H (12-78) U/L Alkaline Phosphatase 87 (46-116) U/L C-Reactive Protein 2.76 H (0.0-0.3) mg/dL Total Protein 6.5 (6.4-8.2) g/dL Albumin 2.7 L (3.4-5.0) g/dL Globulin 3.8 H (2.3-3.5) g/dL Albumin/Globulin Ratio 0.7 L (1.2-2.2) Med Orders - Current: Current Medications Acetaminophen (Tylenol) 650 mg PO Q4H PRN PRN Reason: Pain (Mild 1-3)/fever Last Admin: 05/23/20 17:47 Dose: 650 mg Documented by: Albuterol (Ventolin Hfa) 0 gm INH Q4H PRN PRN Reason: Shortness of Breath Last Admin: 05/22/20 23:20 Dose: 2 puff Documented by: Benzonatate (Tessalon Perles) 100 mg PO TID PRN PRN Reason: Cough Cetirizine HCl (Zyrtec) 10 mg PO DAILY [facility] Last Admin: 05/24/20 08:59 Dose: 10 mg Documented by: Cholecalciferol (Vitamin D3) 250 mcg PO DAILY [facility] Last Admin: 05/24/20 09:00 Dose: 250 mcg Documented by: Dexamethasone (Decadron) 6 mg IVPUSH Q24H [facility] Last Admin: 05/23/20 17:41 Dose: 6 mg Documented by: Diclofenac Sodium (Voltaren 1% Gel) 0 gm TOP BID PRN PRN Reason: joint pain Last Admin: 05/22/20 23:19 Dose: 1 applic Documented by: Docusate Sodium (Colace) 100 mg PO BID PRN PRN Reason: Constipation Last Admin: 05/23/20 09:20 Dose: 100 mg Documented by: Doxepin HCl (Sinequan) 50 mg PO BEDTIME [facility] Last Admin: 05/23/20 21:03 Dose: 50 mg Documented by: Doxycycline Hyclate (Vibramycin) 100 mg PO BID [facility] Last Admin: 05/24/20 08:59 Dose: 100 mg Documented by: Enoxaparin Sodium (Lovenox) 40 mg SUBCUT Q24H [facility] Last Admin: 05/23/20 21:03 Dose: 40 mg Documented by: Guaifenesin/Dextromethorphan (Robitussin Dm) 10 ml PO Q4H PRN PRN Reason: Cough Remdesivir 100 mg/ Sodium (Chloride) 100 mls @ 100 mls/hr IV Q24H [facility] Stop: 05/26/20 20:59 Last Admin: 05/23/20 21:03 Dose: 100 mls/hr Documented by: [place] Carbonate ([place] Carbonate) 450 mg PO DAILY [facility] Last Admin: 05/24/20 08:58 Dose: 450 mg Documented by: Lorazepam (Ativan) 0.5 mg IVPUSH Q4H PRN PRN Reason: Nausea/Vomiting Losartan Potassium (Cozaar) 100 mg PO DAILY [facility] Last Admin: 05/24/20 08:59 Dose: 100 mg Documented by: Magnesium Hydroxide (Milk Of Magnesia) 30 ml PO Q12H PRN PRN Reason: Constipation Ondansetron HCl (Zofran) 4 mg IV Q6H PRN PRN Reason: Nausea/Vomiting Ondansetron HCl (Zofran Odt) 4 mg PO Q6H PRN PRN Reason: Nausea able to take PO Oxybutynin Chloride (Oxybutynin) 5 mg PO BID [facility] Last Admin: 05/24/20 08:59 Dose: 5 mg Documented by: Pantoprazole Sodium (Protonix) 40 mg PO ACBREAKFAST [facility] Last Admin: 05/24/20 08:59 Dose: 40 mg Documented by: Risperidone (Risperidal) 1 mg PO BEDTIME [facility] Last Admin: 05/23/20 21:03 Dose: 1 mg Documented by: Ropinirole HCl (Requip) 2 mg PO BEDTIME [facility] Last Admin: 05/23/20 21:03 Dose: 2 mg Documented by: Sodium Chloride (Saline Flush) 10 ml FLUSH ASDIRECTED PRN PRN Reason: Keep Vein Open Tamsulosin HCl (Flomax) 0.4 mg PO DAILY [facility] Last Admin: 05/24/20 08:59 Dose: 0.4 mg Documented by: Venlafaxine HCl (Effexor Xr) 300 mg PO DAILY [facility] Last Admin: 05/24/20 08:58 Dose: 300 mg Documented by: Zinc Gluconate (Zinc) 50 mg PO DAILY [facility] Last Admin: 05/24/20 08:59 Dose: 50 mg Documented by: Discontinued Medications Remdesivir 200 mg/ Sodium (Chloride) 250 mls @ 250 mls/hr IV ONETIME ONE Stop: 05/22/20 20:59 Last Admin: 05/22/20 20:47 Dose: 250 mls/hr Documented by: Influenza Virus Vaccine (Pharmacy To Dose - Influenza Vaccine) 1 each IM ONETIME ONE Stop: 05/23/20 09:01 Influenza Virus Vaccine (Fluzone Quad [id number] Syringe) 60 mcg IM .ONCE ONE Stop: 05/23/20 09:01 Last Admin: 05/23/20 11:21 Dose: Not Given Documented by: Ketorolac Tromethamine (Toradol) 30 mg IVPUSH ONETIME ONE Stop: 05/22/20 23:01 Last Admin: 05/22/20 23:19 Dose: 30 mg Documented by: Non-Formulary Medication (Acetylcysteine [Nac]) 600 mg PO DAILY [facility] Last Admin: 05/23/20 10:50 Dose: Not Given Documented by: - Exam Quality Assessment: Supplemental Oxygen General: Alert, Oriented, Cooperative, No Acute Distress Lungs: Normal Respiratory Effort GI/Abdominal Exam: No Distention Extremities: No Pedal Edema Skin: Warm, Dry Psy/Mental Status: Alert, Normal Affect - Patient Data Lab Results Last 24 hrs: Laboratory Results - last 24 hr 05/24/20 05/24/20 Range/Units 05:51 05:51 D-Dimer, Quantitative 427.47 (0.0-500.0) ng/mL Sodium 143 (140-148) mmol/L Potassium 4.5 (3.6-5.2) mmol/L Chloride 108 (100-108) mmol/L Carbon Dioxide 25 (21-32) mmol/L Anion Gap 10.2 (5.0-14.0) mmol/L BUN 16 (7-18) mg/dL Creatinine 1.0 (0.8-1.3) mg/dL Est Cr Clr Drug Dosing 89.58 mL/min Estimated GFR (MDRD) > 60 (>60) Glucose 133 H (74-106) mg/dL Calcium 9.0 (8.5-10.1) mg/dL Total Bilirubin 0.1 L (0.2-1.0) mg/dL AST 72 H (15-37) U/L ALT 92 H (12-78) U/L Alkaline Phosphatase 87 (46-116) U/L C-Reactive Protein 2.76 H (0.0-0.3) mg/dL Total Protein 6.5 (6.4-8.2) g/dL Albumin 2.7 L (3.4-5.0) g/dL Globulin 3.8 H (2.3-3.5) g/dL Albumin/Globulin Ratio 0.7 L (1.2-2.2) Result Diagrams: 05/23/20 04:40 05/24/20 05:51 Sepsis Event Note - Evaluation Sepsis Screening Result: No Definite Risk - Focused Exam Vital Signs: Vital Signs Temp Pulse Resp BP BP BP Pulse Ox 05/24/20 08:59 125/77 05/24/20 08:56 35.0 C L 75 16 127/86 94 L 05/24/20 07:22 93 L 05/24/20 04:00 35.2 C L 71 16 135/84 96 05/24/20 01:11 92 L 05/23/20 22:58 36.2 C 81 18 128/77 92 L - Problem List & Annotations (1) Pneumonia due to COVID-19 virus SNOMED Code(s): 779966535708108662 Code(s): U07.1 - COVID-19; J12.82 - PNEUMONIA DUE TO CORONAVIRUS DISEASE 2018 Status: Acute Current Visit: Yes (2) Acute respiratory failure due to COVID-19 SNOMED Code(s): 027601071 Code(s): U07.1 - COVID-19; J96.00 - ACUTE RESPIRATORY FAILURE, UNSP W HYPOXIA OR HYPERCAPNIA Status: Acute Current Visit: Yes (3) BPH loc w urin obs/LUTS SNOMED Code(s): 519127622 Code(s): N40.1 - BENIGN PROSTATIC HYPERPLASIA WITH LOWER URINARY TRACT SYMP Status: Chronic Current Visit: Yes (4) Essential hypertension SNOMED Code(s): 29393222 Code(s): I10 - ESSENTIAL (PRIMARY) HYPERTENSION Status: Chronic Current Visit: Yes (5) LUTHER (obstructive sleep apnea) SNOMED Code(s): 57856876 Code(s): G47.33 - OBSTRUCTIVE SLEEP APNEA (ADULT) (PEDIATRIC) Status: Chronic Current Visit: Yes (6) Methamphetamine abuse in remission SNOMED Code(s): 013851658, 0785088620945 Code(s): F15.11 - OTHER STIMULANT ABUSE, IN REMISSION Status: Chronic Current Visit: Yes (7) Alcohol dependence in remission Status: Chronic Current Visit: Yes - Problem List Review Problem List Initiated/Reviewed/Updated: Yes - My Orders Last 24 Hours: My Active Orders 05/23/20 20:00 Remdesivir 100 mg Sodium Chloride 0.9% [Normal Saline] 100 ml IV Q24H 05/25/20 05:00 COMPREHENSIVE METABOLIC PN,CMP [CHEM] Timed - Plan Plan:: ASSESSMENT AND PLAN - COVID-19 pneumonia-complicated by acute respiratory failure with hypoxia. Onset of symptoms 05/17. Clinically improving. Respiratory status improving with less supplemental oxygen today. Labs improving. -Supplement oxygen, wean as able -Dexamethasone every 24 hours (day 3) -Remdesivir x5 days (day 3) -Enoxaparin every 24 hours -Symptomatic management of cough -Limit fluids -Isolation precautions through at least May 27 History of alcohol and methamphetamine use and abuse-sober for about 3 weeks. No evidence for withdrawal at this time. Essential hypertension-blood pressure well controlled so far. -Continue home medications BPH with lower urinary tract symptoms-stable. -Continue home medications Obstructive sleep apnea-severe disease at this time. Chronically uses CPAP. History of severe depression-also previous suicide attempt. Mood is currently stable. -Continue home medications Maintenance issues - - DVT prophylaxis -enoxaparin - GI prophylaxis -PPI since he will be on steroids - Nutrition -regular Disposition -I would anticipate discharge back to the treatment facility after the hospital stay Lawrence Dumont M.D.
[2020-05-24] MEDS: Dexamethasone 4 MG/ML SDV IVPUSH SCH (17:42)
[2020-05-24] MEDS: REMDESIVIR 100 MG in Sodium Chloride 0.9% 100 ML IV SCH (20:23)
[2020-05-24] MEDS: rOPINIRole 1 MG Tab PO SCH (21:57)
[2020-05-24] MEDS: Doxepin 25 MG Cap PO SCH (21:58)
[2020-05-24] MEDS: Enoxaparin 40 MG/0.4 ML Syringe SUBCUT SCH (21:58)
[2020-05-24] MEDS: risperiDONE 1 MG Tab PO SCH (21:58)
[2020-05-25] MEDS: Venlafaxine 75 MG Cap.ER PO SCH (08:19)
[2020-05-25] MEDS: Losartan 50 MG Tab PO SCH (08:19)
[2020-05-25] MEDS: Tamsulosin 0.4 MG Cap.ER PO SCH (08:20)
[2020-05-25] MEDS: Cetirizine 10 MG Tab PO SCH (08:20)
[2020-05-25] MEDS: Oxybutynin 5 MG Tab PO SCH ×2 (08:20→22:17)
[2020-05-25] MEDS: Cholecalciferol (Vitamin D3) 25 MCG Tab PO SCH (08:20)
[2020-05-25] MEDS: Doxycycline 100 MG Cap PO SCH ×2 (08:20→22:19)
[2020-05-25] MEDS: Zinc (Zinc Gluconate) 50 MG Tab PO SCH (08:20)
[2020-05-25] MEDS: Pantoprazole 40 MG Tab.CR PO SCH (08:20)
--- NOTE | 2020-05-25 10:46 | PCM.PN ---
- General Info Date of Service: 05/25/20 Subjective Update: No acute events overnight. No fevers. No nausea or diarrhea. Appetite has been good. We have been able to wean him off supplemental oxygen this morning. He is still weak and tired but otherwise feeling better. Tolerating treatment with steroids and remdesivir. Functional Status: Reports: Pain Controlled, Tolerating Diet - Review of Systems General: Reports: Weakness, Fatigue. Denies: Fever Pulmonary: Reports: Cough. Denies: Shortness of Breath Gastrointestinal: Denies: Diarrhea - Patient Data Vitals - Most Recent: Last Vital Signs Temp 36.1 C 05/25/20 07:00 Pulse 74 05/25/20 07:00 Resp 16 05/25/20 07:00 BP 110/64 05/25/20 08:19 Pulse Ox 93 L 05/25/20 07:52 Weight - Most Recent: 139.706 kg I&O - Last 24 Hours: Intake & Output 05/24/20 05/25/20 05/25/20 22:59 06:59 14:59 Intake Total 3300 800 Output Total 1550 750 Balance 1750 -750 800 Lab Results Last 24 Hours: Laboratory Results - last 24 hr 05/25/20 Range/Units 04:40 Sodium 142 (140-148) mmol/L Potassium 4.5 (3.6-5.2) mmol/L Chloride 108 (100-108) mmol/L Carbon Dioxide 23 (21-32) mmol/L Anion Gap 11.1 (5.0-14.0) mmol/L BUN 14 (7-18) mg/dL Creatinine 0.9 (0.8-1.3) mg/dL Est Cr Clr Drug Dosing 99.53 mL/min Estimated GFR (MDRD) > 60 (>60) Glucose 137 H (74-106) mg/dL Calcium 8.9 (8.5-10.1) mg/dL Total Bilirubin 0.2 D (0.2-1.0) mg/dL AST 85 H (15-37) U/L ALT 110 H (12-78) U/L Alkaline Phosphatase 87 (46-116) U/L Total Protein 6.2 L (6.4-8.2) g/dL Albumin 2.6 L (3.4-5.0) g/dL Globulin 3.6 H (2.3-3.5) g/dL Albumin/Globulin Ratio 0.7 L (1.2-2.2) Med Orders - Current: Current Medications Acetaminophen (Tylenol) 650 mg PO Q4H PRN PRN Reason: Pain (Mild 1-3)/fever Last Admin: 05/23/20 17:47 Dose: 650 mg Documented by: Albuterol (Ventolin Hfa) 0 gm INH Q4H PRN PRN Reason: Shortness of Breath Last Admin: 05/22/20 23:20 Dose: 2 puff Documented by: Benzonatate (Tessalon Perles) 100 mg PO TID PRN PRN Reason: Cough Cetirizine HCl (Zyrtec) 10 mg PO DAILY [facility] Last Admin: 05/25/20 08:20 Dose: 10 mg Documented by: Cholecalciferol (Vitamin D3) 250 mcg PO DAILY [facility] Last Admin: 05/25/20 08:20 Dose: 250 mcg Documented by: Dexamethasone (Decadron) 6 mg IVPUSH Q24H [facility] Last Admin: 05/24/20 17:42 Dose: 6 mg Documented by: Diclofenac Sodium (Voltaren 1% Gel) 0 gm TOP BID PRN PRN Reason: joint pain Last Admin: 05/22/20 23:19 Dose: 1 applic Documented by: Docusate Sodium (Colace) 100 mg PO BID PRN PRN Reason: Constipation Last Admin: 05/23/20 09:20 Dose: 100 mg Documented by: Doxepin HCl (Sinequan) 50 mg PO BEDTIME [facility] Last Admin: 05/24/20 21:58 Dose: 50 mg Documented by: Doxycycline Hyclate (Vibramycin) 100 mg PO BID [facility] Last Admin: 05/25/20 08:20 Dose: 100 mg Documented by: Enoxaparin Sodium (Lovenox) 40 mg SUBCUT Q24H [facility] Last Admin: 05/24/20 21:58 Dose: 40 mg Documented by: Guaifenesin/Dextromethorphan (Robitussin Dm) 10 ml PO Q4H PRN PRN Reason: Cough Remdesivir 100 mg/ Sodium (Chloride) 100 mls @ 100 mls/hr IV Q24H [facility] Stop: 05/26/20 20:59 Last Admin: 05/24/20 20:23 Dose: 100 mls/hr Documented by: [place] Carbonate ([place] Carbonate) 450 mg PO DAILY [facility] Last Admin: 05/25/20 08:20 Dose: 450 mg Documented by: Lorazepam (Ativan) 0.5 mg IVPUSH Q4H PRN PRN Reason: Nausea/Vomiting Losartan Potassium (Cozaar) 100 mg PO DAILY [facility] Last Admin: 05/25/20 08:19 Dose: 100 mg Documented by: Magnesium Hydroxide (Milk Of Magnesia) 30 ml PO Q12H PRN PRN Reason: Constipation Ondansetron HCl (Zofran) 4 mg IV Q6H PRN PRN Reason: Nausea/Vomiting Ondansetron HCl (Zofran Odt) 4 mg PO Q6H PRN PRN Reason: Nausea able to take PO Oxybutynin Chloride (Oxybutynin) 5 mg PO BID [facility] Last Admin: 05/25/20 08:20 Dose: 5 mg Documented by: Pantoprazole Sodium (Protonix) 40 mg PO ACBREAKFAST [facility] Last Admin: 05/25/20 08:20 Dose: 40 mg Documented by: Risperidone (Risperidal) 1 mg PO BEDTIME [facility] Last Admin: 05/24/20 21:58 Dose: 1 mg Documented by: Ropinirole HCl (Requip) 2 mg PO BEDTIME [facility] Last Admin: 05/24/20 21:57 Dose: 2 mg Documented by: Sodium Chloride (Saline Flush) 10 ml FLUSH ASDIRECTED PRN PRN Reason: Keep Vein Open Tamsulosin HCl (Flomax) 0.4 mg PO DAILY [facility] Last Admin: 05/25/20 08:20 Dose: 0.4 mg Documented by: Venlafaxine HCl (Effexor Xr) 300 mg PO DAILY [facility] Last Admin: 05/25/20 08:19 Dose: 300 mg Documented by: Zinc Gluconate (Zinc) 50 mg PO DAILY [facility] Last Admin: 05/25/20 08:20 Dose: 50 mg Documented by: Discontinued Medications Remdesivir 200 mg/ Sodium (Chloride) 250 mls @ 250 mls/hr IV ONETIME ONE Stop: 05/22/20 20:59 Last Admin: 05/22/20 20:47 Dose: 250 mls/hr Documented by: Influenza Virus Vaccine (Pharmacy To Dose - Influenza Vaccine) 1 each IM ONETIME ONE Stop: 05/23/20 09:01 Influenza Virus Vaccine (Fluzone Quad Syringe) 60 mcg IM .ONCE ONE Stop: 05/23/20 09:01 Last Admin: 05/23/20 11:21 Dose: Not Given Documented by: Ketorolac Tromethamine (Toradol) 30 mg IVPUSH ONETIME ONE Stop: 05/22/20 23:01 Last Admin: 05/22/20 23:19 Dose: 30 mg Documented by: Non-Formulary Medication (Acetylcysteine [Nac]) 600 mg PO DAILY [facility] Last Admin: 05/23/20 10:50 Dose: Not Given Documented by: - Exam Quality Assessment: No: Supplemental Oxygen General: Alert, Oriented, Cooperative, No Acute Distress Lungs: Normal Respiratory Effort GI/Abdominal Exam: No Distention Extremities: No Pedal Edema Skin: Warm, Dry Psy/Mental Status: Alert, Normal Affect - Patient Data Lab Results Last 24 hrs: Laboratory Results - last 24 hr 05/25/20 Range/Units 04:40 Sodium 142 (140-148) mmol/L Potassium 4.5 (3.6-5.2) mmol/L Chloride 108 (100-108) mmol/L Carbon Dioxide 23 (21-32) mmol/L Anion Gap 11.1 (5.0-14.0) mmol/L BUN 14 (7-18) mg/dL Creatinine 0.9 (0.8-1.3) mg/dL Est Cr Clr Drug Dosing 99.53 mL/min Estimated GFR (MDRD) > 60 (>60) Glucose 137 H (74-106) mg/dL Calcium 8.9 (8.5-10.1) mg/dL Total Bilirubin 0.2 D (0.2-1.0) mg/dL AST 85 H (15-37) U/L ALT 110 H (12-78) U/L Alkaline Phosphatase 87 (46-116) U/L Total Protein 6.2 L (6.4-8.2) g/dL Albumin 2.6 L (3.4-5.0) g/dL Globulin 3.6 H (2.3-3.5) g/dL Albumin/Globulin Ratio 0.7 L (1.2-2.2) Result Diagrams: 05/23/20 04:40 05/25/20 04:40 Sepsis Event Note - Evaluation Sepsis Screening Result: No Definite Risk - Focused Exam Vital Signs: Vital Signs Temp Pulse Resp BP BP Pulse Ox 05/25/20 08:19 110/64 05/25/20 07:52 93 L 05/25/20 07:00 36.1 C 74 16 103/64 93 L 05/25/20 03:06 35.6 C L 80 16 111/70 90 L 05/25/20 01:28 92 L - Problem List & Annotations (1) Pneumonia due to COVID-19 virus SNOMED Code(s): 855637393423425993 Code(s): U07.1 - COVID-19; J12.82 - PNEUMONIA DUE TO CORONAVIRUS DISEASE 2019 Status: Acute Current Visit: Yes (2) Acute respiratory failure due to COVID-19 SNOMED Code(s): 710994600 Code(s): U07.1 - COVID-19; J96.00 - ACUTE RESPIRATORY FAILURE, UNSP W HYPOXIA OR HYPERCAPNIA Status: Acute Current Visit: Yes (3) BPH loc w urin obs/LUTS SNOMED Code(s): 959649346 Code(s): N40.1 - BENIGN PROSTATIC HYPERPLASIA WITH LOWER URINARY TRACT SYMP Status: Chronic Current Visit: Yes (4) Essential hypertension SNOMED Code(s): 59652347 Code(s): I10 - ESSENTIAL (PRIMARY) HYPERTENSION Status: Chronic Current Visit: Yes (5) LUTHER (obstructive sleep apnea) SNOMED Code(s): 24234528 Code(s): G47.33 - OBSTRUCTIVE SLEEP APNEA (ADULT) (PEDIATRIC) Status: Chronic Current Visit: Yes (6) Methamphetamine abuse in remission SNOMED Code(s): 812168904, 5813042427717 Code(s): F15.11 - OTHER STIMULANT ABUSE, IN REMISSION Status: Chronic Current Visit: Yes (7) Alcohol dependence in remission Status: Chronic Current Visit: Yes - Problem List Review Problem List Initiated/Reviewed/Updated: Yes - My Orders Last 24 Hours: My Active Orders 05/26/20 05:00 C-REACTIVE PROTEIN [CHEM] Timed CBC W/O DIFF,HEMOGRAM [HEME] Timed (1) COMPREHENSIVE METABOLIC PN,CMP [CHEM] Timed D-DIMER QUANTITATIVE [COAG] Timed - Plan Plan:: ASSESSMENT AND PLAN - COVID-19 pneumonia-complicated by acute respiratory failure with hypoxia. Onset of symptoms 05/17. Clinically improving and off supplemental oxygen as of this morning. Fatigue is his main persistent symptom. -Supplement oxygen, wean as able -Dexamethasone every 24 hours (day 4) -Remdesivir x5 days (day 4) -Enoxaparin every 24 hours -Symptomatic management of cough -Limit fluids -Isolation precautions through at least May 27 History of alcohol and methamphetamine use and abuse-sober for about 3 weeks. No evidence for withdrawal at this time. Essential hypertension-blood pressure well controlled so far. -Continue home medications BPH with lower urinary tract symptoms-stable. -Continue home medications Obstructive sleep apnea-severe disease at this time. Chronically uses CPAP. History of severe depression-also previous suicide attempt. Mood stable. -Continue home medications Maintenance issues - - DVT prophylaxis -enoxaparin - GI prophylaxis -PPI since he will be on steroids - Nutrition -regular Disposition -I would anticipate discharge back to the treatment facility after the hospital stay. I am currently planning to give him 1 more dose of remdesivir and IV steroids today and if he remains stable he can go back to [place] tomorrow. Lawrence Dumont M.D.
[2020-05-25] MEDS: Dexamethasone 4 MG/ML SDV IVPUSH SCH (18:23)
[2020-05-25] MEDS: REMDESIVIR 100 MG in Sodium Chloride 0.9% 100 ML IV SCH (20:15)
[2020-05-25] MEDS: Enoxaparin 40 MG/0.4 ML Syringe SUBCUT SCH (22:16)
[2020-05-25] MEDS: Doxepin 25 MG Cap PO SCH (22:17)
[2020-05-25] MEDS: rOPINIRole 1 MG Tab PO SCH (22:17)
[2020-05-25] MEDS: risperiDONE 1 MG Tab PO SCH (22:19)
[2020-05-26] MEDS: Losartan 50 MG Tab PO SCH (08:40)
[2020-05-26] MEDS: Cholecalciferol (Vitamin D3) 25 MCG Tab PO SCH (08:40)
[2020-05-26] MEDS: Venlafaxine 75 MG Cap.ER PO SCH (08:41)
[2020-05-26] MEDS: Pantoprazole 40 MG Tab.CR PO SCH (08:41)
[2020-05-26] MEDS: Cetirizine 10 MG Tab PO SCH (08:41)
[2020-05-26] MEDS: Doxycycline 100 MG Cap PO SCH (08:41)
[2020-05-26] MEDS: Oxybutynin 5 MG Tab PO SCH (08:41)
[2020-05-26] MEDS: Tamsulosin 0.4 MG Cap.ER PO SCH (08:41)
[2020-05-26] MEDS: Zinc (Zinc Gluconate) 50 MG Tab PO SCH (08:41)
--- NOTE | 2020-05-26 11:00 | PCM.DCSUM1 ---
Discharge Summary - Hospital Course Brief History: 55-year-old male with history of obstructive sleep apnea, BPH, previous dependence on alcohol and methamphetamines who presented from treatment with fever, shortness of breath and diarrhea. He was directly admitted for management of COVID-19 pneumonia with hypoxic respiratory failure. Diagnosis: Stroke: No - Discharge Data Discharge Date: 05/26/20 Discharge Disposition: DC/Tfer to Inpt Rehab Fac 62 Condition: Good - Referral to Home Health Primary Care Physician: Sherif Birch Sr, MD - Discharge Diagnosis/Problem(s) (1) Pneumonia due to COVID-19 virus SNOMED Code(s): 894334323763218277 ICD Code: U07.1 - COVID-19; J12.82 - PNEUMONIA DUE TO CORONAVIRUS DISEASE 2018 Status: Acute Current Visit: Yes (2) Acute respiratory failure due to COVID-19 SNOMED Code(s): 656244332 ICD Code: U07.1 - COVID-19; J96.00 - ACUTE RESPIRATORY FAILURE, UNSP W HYPOXIA OR HYPERCAPNIA Status: Acute Current Visit: Yes (3) BPH loc w urin obs/LUTS SNOMED Code(s): 155515695 ICD Code: N40.1 - BENIGN PROSTATIC HYPERPLASIA WITH LOWER URINARY TRACT SYMP Status: Chronic Current Visit: Yes (4) Essential hypertension SNOMED Code(s): 97251390 ICD Code: I10 - ESSENTIAL (PRIMARY) HYPERTENSION Status: Chronic Current Visit: Yes (5) LUTHER (obstructive sleep apnea) SNOMED Code(s): 77827893 ICD Code: G47.33 - OBSTRUCTIVE SLEEP APNEA (ADULT) (PEDIATRIC) Status: Chronic Current Visit: Yes (6) Methamphetamine abuse in remission SNOMED Code(s): 394278738, 4750757178670 ICD Code: F15.11 - OTHER STIMULANT ABUSE, IN REMISSION Status: Chronic Current Visit: Yes (7) Alcohol dependence in remission Status: Chronic Current Visit: Yes - Patient Summary/Data Hospital Course: Sergio was a direct admission from [facility] for management of COVID-19 pneumonia with acute respiratory failure with hypoxia. He had tested positive about 5 days prior to presentation. On the day of admission staff had noted oxygen saturations in the mid to upper 80s so he was sent for further management. At the time of admission he was noted to have a mildly elevated D- dimer and moderately elevated CRP. White blood cell count and platelet levels were normal. He was febrile shortly after admission. We did start him on remdesivir and dexamethasone. Over the next several days we saw steady improvements. We were able to wean him off of his supplemental oxygen. Symptomatically he is doing better with resolution of diarrhea and cough. He does still have fatigue and some weakness but overall is doing quite a bit better. His appetite has been good. He has not needed any oxygen in more than 24 hours. He has not had a fever since the day of admission. His D-dimer and CRP have trended down and his D-dimer is now normal. I believe he is safe for outpatient management at this point. I did recommend 3 additional days of steroid therapy starting tomorrow. No additional treatment was recommended at the time of discharge. He will be going back to [place] to finish his inpatient treatment. Today is day 10 of his illness and quarantine/isolation precautions can be discontinued starting tomorrow morning. - Patient Instructions Diet: Regular Diet as Tolerated Activity: As Tolerated Showering/Bathing: May Shower Notify Provider of: Fever, Increased Pain Other/Special Instructions: 1. You were in the hospital for management of COVID- 19 pneumonia with acute respiratory failure with hypoxia. Your condition is improving with treatment provided in the hospital including remdesivir and dexamethasone. I recommend 3 additional days of dexamethasone after hospital discharge. You should take 6 mg daily for 3 days starting on Wednesday. You may continue to use acetaminophen and ibuprofen as needed for pain or fever if it recurs. Many people who have a Covid infection take several days to a few weeks to regain their usual amount of strength and energy. 2. Continue your usual medications as previously prescribed. - Discharge Plan *PRESCRIPTION DRUG MONITORING PROGRAM REVIEWED*: Not Applicable *COPY OF PRESCRIPTION DRUG MONITORING REPORT IN PATIENT PEDRO: Not Applicable Prescriptions/Med Rec: dexAMETHasone [Dexamethasone] 6 mg PO DAILY #9 tablet Home Medications: Home Meds Acetaminophen [Acetaminophen Extra Strength] 500 - 1,000 mg PO ASDIRECTED PRN 05/22/20 [History] Acetylcysteine [Nac] 600 mg PO DAILY 05/22/20 [History] Cetirizine HCl 10 mg PO DAILY 05/22/20 [History] Cholecalciferol (Vitamin D3) [Vitamin D3] 250 mcg PO DAILY 05/22/20 [History] Diclofenac Sodium [Voltaren 1% Gel] 2 inch TOP BID PRN 05/22/20 [History] Docusate Sodium 100 mg PO BID PRN 05/22/20 [History] Doxepin [SINEquan] 50 mg PO BEDTIME 05/22/20 [History] Doxycycline Hyclate 100 mg PO BID 05/22/20 [History] Ibuprofen 200 - 400 mg PO ASDIRECTED PRN 05/22/20 [History] Redby Carbonate [Redby Carbonate ER] 450 mg PO DAILY 05/22/20 [History] Losartan [Cozaar] 100 mg PO DAILY 05/22/20 [History] Oxybutynin Chloride [Oxybutynin Chloride ER] 10 mg PO DAILY 05/22/20 [History] Tamsulosin HCl 0.4 mg PO DAILY 05/22/20 [History] Venlafaxine HCl [Venlafaxine ER] 300 mg PO DAILY 05/22/20 [History] Zinc 50 mg PO DAILY 05/22/20 [History] rOPINIRole [Requip] 2 mg PO BEDTIME 05/22/20 [History] risperiDONE [Risperidone] 1 mg PO BEDTIME 05/22/20 [History] dexAMETHasone [Dexamethasone] 6 mg PO DAILY #9 tablet 05/26/20 [Rx] Oxygen Therapy Mode: Room Air Patient Handouts: What You Should Know About COVID-19 to Protect Yourself and Others - [facility] - Discharge Summary/Plan Comment DC Time >30 min.: No - Patient Data Vitals - Most Recent: Last Vital Signs Temp 35.8 C L 05/26/20 10:18 Pulse 80 05/26/20 10:18 Resp 18 05/26/20 10:18 BP 153/100 H 05/26/20 10:18 Pulse Ox 92 L 05/26/20 10:18 Weight - Most Recent: 140.341 kg I&O - Last 24 hours: Intake & Output 05/25/20 05/26/20 05/26/20 22:59 06:59 14:59 Intake Total 700 Output Total 800 750 800 Balance -100 -750 -800 Lab Results - Last 24 hrs: Laboratory Results - last 24 hr 05/26/20 05/26/20 05/26/20 Range/Units 05:42 05:42 05:42 WBC 6.9 (4.5-11.0) K/uL RBC 4.52 (4.30-5.90) M/uL Hgb 13.9 (12.0-15.0) g/dL Hct 42.1 (40.0-54.0) % MCV 93 (80-98) fL MCH 31 (27-31) pg MCHC 33 (32-36) % Plt Count 407 H (150-400) K/uL D-Dimer, Quantitative 278.84 (0.0-500.0) ng/mL Sodium 142 (140-148) mmol/L Potassium 4.2 (3.6-5.2) mmol/L Chloride 108 (100-108) mmol/L Carbon Dioxide 25 (21-32) mmol/L Anion Gap 9.1 (5.0-14.0) mmol/L BUN 14 (7-18) mg/dL Creatinine 0.9 (0.8-1.3) mg/dL Est Cr Clr Drug Dosing 99.53 mL/min Estimated GFR (MDRD) > 60 (>60) Glucose 139 H (74-106) mg/dL Calcium 8.8 (8.5-10.1) mg/dL Total Bilirubin 0.2 (0.2-1.0) mg/dL AST 67 H (15-37) U/L ALT 122 H (12-78) U/L Alkaline Phosphatase 102 (46-116) U/L C-Reactive Protein 1.32 H (0.0-0.3) mg/dL Total Protein 6.3 L (6.4-8.2) g/dL Albumin 2.6 L (3.4-5.0) g/dL Globulin 3.7 H (2.3-3.5) g/dL Albumin/Globulin Ratio 0.7 L (1.2-2.2) Med Orders - Current: Current Medications Acetaminophen (Tylenol) 650 mg PO Q4H PRN PRN Reason: Pain (Mild 1-3)/fever Last Admin: 05/23/20 17:47 Dose: 650 mg Documented by: Albuterol (Ventolin Hfa) 0 gm INH Q4H PRN PRN Reason: Shortness of Breath Last Admin: 05/22/20 23:20 Dose: 2 puff Documented by: Benzonatate (Tessalon Perles) 100 mg PO TID PRN PRN Reason: Cough Cetirizine HCl (Zyrtec) 10 mg PO DAILY [facility] Last Admin: 05/26/20 08:41 Dose: 10 mg Documented by: Cholecalciferol (Vitamin D3) 250 mcg PO DAILY [facility] Last Admin: 05/26/20 08:40 Dose: 250 mcg Documented by: Dexamethasone (Decadron) 6 mg IVPUSH Q24H [facility] Last Admin: 05/25/20 18:23 Dose: 6 mg Documented by: Diclofenac Sodium (Voltaren 1% Gel) 0 gm TOP BID PRN PRN Reason: joint pain Last Admin: 05/22/20 23:19 Dose: 1 applic Documented by: Docusate Sodium (Colace) 100 mg PO BID PRN PRN Reason: Constipation Last Admin: 05/23/20 09:20 Dose: 100 mg Documented by: Doxepin HCl (Sinequan) 50 mg PO BEDTIME [facility] Last Admin: 05/25/20 22:17 Dose: 50 mg Documented by: Doxycycline Hyclate (Vibramycin) 100 mg PO BID [facility] Last Admin: 05/26/20 08:41 Dose: 100 mg Documented by: Enoxaparin Sodium (Lovenox) 40 mg SUBCUT Q24H [facility] Last Admin: 05/25/20 22:16 Dose: 40 mg Documented by: Guaifenesin/Dextromethorphan (Robitussin Dm) 10 ml PO Q4H PRN PRN Reason: Cough Remdesivir 100 mg/ Sodium (Chloride) 100 mls @ 100 mls/hr IV Q24H [facility] Stop: 05/26/20 20:59 Last Admin: 05/25/20 20:15 Dose: 100 mls/hr Documented by: Redby Carbonate (Redby Carbonate) 450 mg PO DAILY [facility] Last Admin: 05/26/20 08:40 Dose: 450 mg Documented by: Lorazepam (Ativan) 0.5 mg IVPUSH Q4H PRN PRN Reason: Nausea/Vomiting Losartan Potassium (Cozaar) 100 mg PO DAILY [facility] Last Admin: 05/26/20 08:40 Dose: 100 mg Documented by: Magnesium Hydroxide (Milk Of Magnesia) 30 ml PO Q12H PRN PRN Reason: Constipation Ondansetron HCl (Zofran) 4 mg IV Q6H PRN PRN Reason: Nausea/Vomiting Ondansetron HCl (Zofran Odt) 4 mg PO Q6H PRN PRN Reason: Nausea able to take PO Oxybutynin Chloride (Oxybutynin) 5 mg PO BID [facility] Last Admin: 05/26/20 08:41 Dose: 5 mg Documented by: Pantoprazole Sodium (Protonix) 40 mg PO ACBREAKFAST [facility] Last Admin: 05/26/20 08:41 Dose: 40 mg Documented by: Risperidone (Risperidal) 1 mg PO BEDTIME [facility] Last Admin: 05/25/20 22:19 Dose: 1 mg Documented by: Ropinirole HCl (Requip) 2 mg PO BEDTIME [facility] Last Admin: 05/25/20 22:17 Dose: 2 mg Documented by: Sodium Chloride (Saline Flush) 10 ml FLUSH ASDIRECTED PRN PRN Reason: Keep Vein Open Tamsulosin HCl (Flomax) 0.4 mg PO DAILY [facility] Last Admin: 05/26/20 08:41 Dose: 0.4 mg Documented by: Venlafaxine HCl (Effexor Xr) 300 mg PO DAILY [facility] Last Admin: 05/26/20 08:41 Dose: 300 mg Documented by: Zinc Gluconate (Zinc) 50 mg PO DAILY [facility] Last Admin: 05/26/20 08:41 Dose: 50 mg Documented by: Discontinued Medications Remdesivir 200 mg/ Sodium (Chloride) 250 mls @ 250 mls/hr IV ONETIME ONE Stop: 05/22/20 20:59 Last Admin: 05/22/20 20:47 Dose: 250 mls/hr Documented by: Influenza Virus Vaccine (Pharmacy To Dose - Influenza Vaccine) 1 each IM ONETIME ONE Stop: 05/23/20 09:01 Influenza Virus Vaccine (Fluzone Quad [id number] Syringe) 60 mcg IM .ONCE ONE Stop: 05/23/20 09:01 Last Admin: 05/23/20 11:21 Dose: Not Given Documented by: Ketorolac Tromethamine (Toradol) 30 mg IVPUSH ONETIME ONE Stop: 05/22/20 23:01 Last Admin: 05/22/20 23:19 Dose: 30 mg Documented by: Non-Formulary Medication (Acetylcysteine [Nac]) 600 mg PO DAILY [facility] Last Admin: 05/23/20 10:50 Dose: Not Given Documented by:
[2020-05-26] MEDS ORDERED: Dexamethasone 2 MG Tab PO ONE (14:00)
== END 2020-05-26 14:53 | DRG 177 ==
LOC: JP.MS 17:43
PROVIDERS: ADMIT Internal Medicine; ATTEND Internal Medicine
PROC: XW033E5 Introduction of Remdesivir Anti-infective into Peripheral Vein, Percutaneous Approach, New Technology Group 5 (ICD-10-PCS; principal; 2020-05-22)
PROC: 8E0ZXY6 Isolation (ICD-10-PCS; 2020-05-22)
DX: U07.1 COVID-19 (principal); J12.82 Pneumonia due to coronavirus disease 2019; J96.01 Acute respiratory failure with hypoxia; N13.8 Other obstructive and reflux uropathy; G47.33 Obstructive sleep apnea (adult) (pediatric); N40.0 Benign prostatic hyperplasia without lower urinary tract symptoms; F10.21 Alcohol dependence, in remission; N40.1 Benign prostatic hyperplasia with lower urinary tract symptoms; I10 Essential (primary) hypertension; F15.11 Other stimulant abuse, in remission; Z79.899 Other long term (current) drug therapy; F32.9 Major depressive disorder, single episode, unspecified; Z90.49 Acquired absence of other specified parts of digestive tract; Z99.81 Dependence on supplemental oxygen
CPT/HCPCS: 36415; 80053; 83615; 83735; 84145; 85025; 85027; 85379; 86140; 94640; 94762; 99222; 99231; 99232; 99238; A9270-GY; J1100; J1650; J1885; J7050; J8540

== ENCOUNTER 2020-05-29 12:28 | Emergency (ER) | payer MEDICAID ==
[2020-05-29] MEDS ORDERED: Aspirin 81 MG Tab.Chew PO ONE (13:42)
[2020-05-29] MEDS ORDERED: Sodium Chloride 0.9% 10 ML Syringe FLUSH PRN (13:42)
[2020-05-29] MEDS ORDERED: Acetaminophen 325 MG Tab PO ONE (13:45)
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
[2020-05-29] MEDS ORDERED: Sodium Chloride 0.9% 10 ML SDV FLUSH ONE (15:24)
[2020-05-29] MEDS ORDERED: diphenhydrAMINE 50 MG/ML SDV IVPUSH ONE (15:29)
[2020-05-29] MEDS ORDERED: Iopamidol 755 Mg/ML 100 ML Bottle IV SCH (15:30)
[2020-05-29] MEDS ORDERED: Sodium Chloride 0.9% 100 ML IV SCH (15:30)
[2020-05-29] MEDS ORDERED: diphenhydrAMINE 50 MG/ML SDV ONE (15:30)
--- NOTE | 2020-05-29 16:32 | CRLCR ---
INDICATION: Hypoxia ; COVID-19. TECHNIQUE: Portable AP chest. FINDINGS: Normal size cardiac silhouette. Patchy alveolar consolidation diffusely involving both lungs diagnostic of COVID-19 infection. No pneumothorax or pleural effusion. IMPRESSION: Diffuse bilateral alveolar consolidation diagnostic of COVID-19 infection. Dictated by Thor Negron MD @ May 29 2020 4:29PM Signed by Dr. Thor Negron @ May 29 2020 4:30PM
--- NOTE | 2020-05-29 16:36 | CRLCT ---
INDICATION: Hypoxia; COVID-19 infection; rule out PE. COMPARISON: Chest radiograph same date. TECHNIQUE: CT chest with intravenous contrast; coronal and sagittal reformats. FINDINGS: No CT evidence of acute pulmonary thromboembolism. Normal sized cardiac silhouette without any evidence of pericardial effusion. No evidence of pleural effusion or chest wall pathology. extensive patchy areas of alveolar consolidation diffusely involving both lungs; diagnostic of COVID-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 IMPRESSION: 1. No CT evidence of pulmonary thromboembolism. 2. Extensive patchy areas of alveolar consolidation involving both lungs diagnostic of COVID-19 infection. Please note that all CT scans at this facility use dose modulation, iterative reconstruction, and/or weight-based dosing when appropriate to reduce radiation dose to as low as reasonably achievable. Dictated by Thor Negron MD @ May 29 2020 4:28PM Signed by Dr. Thor Negron @ May 29 2020 4:34PM
== END 2020-05-29 19:08 ==
LOC: JP.ED 12:28
DX: R06.02 Shortness of breath (principal); R07.9 Chest pain, unspecified; I10 Essential (primary) hypertension; N40.0 Benign prostatic hyperplasia without lower urinary tract symptoms; E66.9 Obesity, unspecified; Z68.41 Body mass index [BMI] 40.0-44.9, adult; Z86.16 Personal history of COVID-19; Z86.73 Personal history of transient ischemic attack (TIA), and cerebral infarction without residual deficits; Z77.22 Contact with and (suspected) exposure to environmental tobacco smoke (acute) (chronic)
CPT/HCPCS: 36415; 71045; 71275; 80053; 83605; 84145; 84484; 85025; 85379; 93005; 96374; 99283; 99285; A9270; J1200; Q9967

== ENCOUNTER 2020-05-30 22:38 | Inpatient (IN) | payer MEDICAID ==
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
[2020-05-31] MEDS ORDERED: Acetaminophen 325 MG Tab PO PRN ×2 (00:26→00:37)
[2020-05-31] MEDS ORDERED: Morphine 2 MG/ML SYRINGE IVPUSH PRN (00:30)
[2020-05-31] MEDS ORDERED: Dexamethasone 4 MG/ML SDV IVPUSH SCH (00:30)
[2020-05-31] MEDS ORDERED: Docusate Sodium 100 MG Cap PO PRN (00:30)
[2020-05-31] MEDS ORDERED: Ondansetron 4 MG Tab.DIS PO PRN (00:30)
[2020-05-31] MEDS ORDERED: LORazepam 2 MG/ML SDV IV PRN (00:30)
[2020-05-31] MEDS ORDERED: oxyCODONE 5 MG Tab PO PRN (00:30)
[2020-05-31] MEDS ORDERED: Bisacodyl 5 MG Tab PO PRN (00:30)
[2020-05-31] MEDS ORDERED: Diclofenac Sodium 1% Gel 100 GM Tube TOP PRN (00:34)
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
[2020-05-31] MEDS ORDERED: Doxycycline 100 MG in Sodium Chloride 0.9% 100 ML IV SCH (01:00)
[2020-05-31] MEDS ORDERED: Albuterol 8 GM Inhaler INH SCH (01:00)
[2020-05-31] MEDS: Enoxaparin 40 MG/0.4 ML Syringe SUBCUT SCH ×2 (01:47→20:58)
[2020-05-31] MEDS ORDERED: Sodium Chloride 0.9% 100 ML ONE (02:05)
[2020-05-31] MEDS: Doxycycline 100 MG in Sodium Chloride 0.9% 100 ML IV SCH ×2 (02:20→13:51)
[2020-05-31] MEDS: Albuterol 8 GM Inhaler INH SCH ×6 (02:21→22:53)
[2020-05-31] MEDS: Acetaminophen 325 MG Tab PO PRN ×2 (02:21→07:18)
[2020-05-31] MEDS ORDERED: Pantoprazole 40 MG Vial IV SCH (07:30)
[2020-05-31] MEDS: Pantoprazole 40 MG Tab.CR PO SCH (08:24)
[2020-05-31] MEDS: Lithium Carbonate 300 MG Tab.ER PO SCH (08:24)
[2020-05-31] MEDS: Losartan 50 MG Tab PO SCH (08:24)
[2020-05-31] MEDS: Venlafaxine 75 MG Cap.ER PO SCH (08:24)
[2020-05-31] MEDS: Tamsulosin 0.4 MG Cap.ER PO SCH (08:24)
[2020-05-31] MEDS ORDERED: Non-Formulary Medication 1 Each (Acetylcysteine [Nac] 600 MG) PO SCH (09:00)
[2020-05-31] MEDS ORDERED: LITHIUM CARBONATE 450 MG PO SCH (09:00)
--- NOTE | 2020-05-31 10:14 | CR ---
CHEST: Portable 05/30/2020 at 11:19 PM CLINICAL HISTORY:Dyspnea, hypoxia,covid COMPARISON:CT 05/29/2020 FINDINGS: Patient has diffuse bilateral pulmonary infiltrates. Appearance is similar to the CT study of 05/29/2020. IMPRESSION: Persistent diffuse bilateral pulmonary infiltrates
--- NOTE | 2020-05-31 11:45 | PCM.PN ---
- General Info Date of Service: 05/31/20 Subjective Update: Mr. Paz has been stable since admission yesterday, he has required supplemental oxygen. He does have known sleep apnea and did have episodes of desaturation and bradycardia during the night. Chest x-ray did show infiltrates consistent with his previous Covid infection. White blood cell count elevated although he had just stopped steroid therapy a day prior to coming into the emergency department. Functional Status: Reports: Tolerating Diet, Urinating - Review of Systems General: Reports: Weakness, Fatigue. Denies: Fever, Chills Pulmonary: Reports: Shortness of Breath. Denies: Pleuritic Chest Pain, Cough, Sputum, Hemoptysis, Wheezing Cardiovascular: Reports: Dyspnea on Exertion. Denies: Chest Pain, Palpitations, Orthopnea, PND, Edema, Lightheadedness Gastrointestinal: Reports: No Symptoms Genitourinary: Reports: No Symptoms - Patient Data Vitals - Most Recent: Last Vital Signs Temp 97 F 05/31/20 08:00 Pulse 85 05/31/20 08:00 Resp 16 05/31/20 08:00 BP 128/62 05/31/20 08:24 Pulse Ox 96 05/31/20 08:00 Weight - Most Recent: 315 lb 7.986 oz I&O - Last 24 Hours: Intake & Output 05/30/20 05/31/20 05/31/20 22:59 06:59 14:59 Intake Total 600 650 Output Total 1525 850 Balance -925 -200 Lab Results Last 24 Hours: Laboratory Results - last 24 hr 05/30/20 05/30/20 05/31/20 Range/Units 22:51 22:51 00:10 WBC 16.4 H (4.5-11.0) K/uL RBC 4.38 (4.30-5.90) M/uL Hgb 13.9 (12.0-15.0) g/dL Hct 41.0 (40.0-54.0) % MCV 94 (80-98) fL MCH 32 H (27-31) pg MCHC 34 (32-36) % Plt Count 595 H (150-400) K/uL Add Manual Diff Yes Neutrophils % (Manual) 72 H (36-66) % Band Neutrophils % 4 L (5-11) % Lymphocytes % (Manual) 11 L (24-44) % Monocytes % (Manual) 9 H (2-6) % Eosinophils % (Manual) 4 (2-4) % Polychromasia PT (9.5-12.0) sec INR (0.80-1.20) D-Dimer, Quantitative (0.0-500.0) ng/mL Puncture Site ABG pH (7.350-7.450) ABG pCO2 (35.0-42.0) mmHg ABG pO2 (75.0-100.0) mmHg ABG HCO3 (22.0-26.0) mmol/L ABG Total CO2 (23.0-27.0) mmol/L ABG O2 Saturation (95.0-98.0) % ABG O2 Content (15.0-23.0) %vol ABG Base Excess mm/L ABG Hemoglobin (13.5-18.0) g/dL ABG Oxyhemoglobin % ABG Carboxyhemoglobin (0.0-1.6) % ABG Methemoglobin % Omega Test O2 Delivery Device Oxygen Flow Rate L Sodium 137 L (140-148) mmol/L Potassium 3.7 (3.6-5.2) mmol/L Chloride 103 (100-108) mmol/L Carbon Dioxide 25 (21-32) mmol/L Anion Gap 12.7 (5.0-14.0) mmol/L BUN 19 H (7-18) mg/dL Creatinine 1.2 (0.8-1.3) mg/dL Est Cr Clr Drug Dosing 74.65 mL/min Estimated GFR (MDRD) > 60 (>60) Glucose 148 H (74-106) mg/dL Calcium 9.8 (8.5-10.1) mg/dL Ferritin (8-388) ng/ml Total Bilirubin 0.3 (0.2-1.0) mg/dL AST 25 (15-37) U/L ALT 52 (12-78) U/L Alkaline Phosphatase 94 (46-116) U/L Lactate Dehydrogenase (85-227) U/L C-Reactive Protein (0.0-0.3) mg/dL Total Protein 6.1 L (6.4-8.2) g/dL Albumin 2.2 L (3.4-5.0) g/dL Globulin 3.9 H (2.3-3.5) g/dL Albumin/Globulin Ratio 0.6 L (1.2-2.2) Amylase 60 (25-115) U/L Lipase 120 (73-393) U/L Procalcitonin ng/mL Urine Color (YELLOW) Urine Appearance (CLEAR) Urine pH (5.0-8.0) Ur Specific [place] (1.008-1.030) Urine Protein (NEGATIVE) mg/dL Urine Glucose (UA) (NEGATIVE) mg/dL Urine Ketones (NEGATIVE) mg/dL Urine Occult Blood (NEGATIVE) Urine Nitrite (NEGATIVE) Urine Bilirubin (NEGATIVE) Urine Urobilinogen (0.2-1.0) EU/dL Ur Leukocyte Esterase (NEGATIVE) Urine RBC (0-5) Urine WBC (0-5) Ur Epithelial Cells Amorphous Sediment Urine Bacteria Urine Mucus 05/31/20 05/31/20 05/31/20 Range/Units 00:11 00:11 00:11 WBC (4.5-11.0) K/uL RBC (4.30-5.90) M/uL Hgb (12.0-15.0) g/dL Hct (40.0-54.0) % MCV (80-98) fL MCH (27-31) pg MCHC (32-36) % Plt Count (150-400) K/uL Add Manual Diff Neutrophils % (Manual) (36-66) % Band Neutrophils % (5-11) % Lymphocytes % (Manual) (24-44) % Monocytes % (Manual) (2-6) % Eosinophils % (Manual) (2-4) % Polychromasia PT 10.6 (9.5-12.0) sec INR 0.97 (0.80-1.20) D-Dimer, Quantitative (0.0-500.0) ng/mL Puncture Site ABG pH (7.350-7.450) ABG pCO2 (35.0-42.0) mmHg ABG pO2 (75.0-100.0) mmHg ABG HCO3 (22.0-26.0) mmol/L ABG Total CO2 (23.0-27.0) mmol/L ABG O2 Saturation (95.0-98.0) % ABG O2 Content (15.0-23.0) %vol ABG Base Excess mm/L ABG Hemoglobin (13.5-18.0) g/dL ABG Oxyhemoglobin % ABG Carboxyhemoglobin (0.0-1.6) % ABG Methemoglobin % Omega Test O2 Delivery Device Oxygen Flow Rate L Sodium (140-148) mmol/L Potassium (3.6-5.2) mmol/L Chloride (100-108) mmol/L Carbon Dioxide (21-32) mmol/L Anion Gap (5.0-14.0) mmol/L BUN (7-18) mg/dL Creatinine (0.8-1.3) mg/dL Est Cr Clr Drug Dosing mL/min Estimated GFR (MDRD) (>60) Glucose (74-106) mg/dL Calcium (8.5-10.1) mg/dL Ferritin (8-388) ng/ml Total Bilirubin (0.2-1.0) mg/dL AST (15-37) U/L ALT (12-78) U/L Alkaline Phosphatase (46-116) U/L Lactate Dehydrogenase 304 H (85-227) U/L C-Reactive Protein 9.92 H (0.0-0.3) mg/dL Total Protein (6.4-8.2) g/dL Albumin (3.4-5.0) g/dL Globulin (2.3-3.5) g/dL Albumin/Globulin Ratio (1.2-2.2) Amylase (25-115) U/L Lipase (73-393) U/L Procalcitonin 0.06 ng/mL Urine Color (YELLOW) Urine Appearance (CLEAR) Urine pH (5.0-8.0) Ur Specific [place] (1.008-1.030) Urine Protein (NEGATIVE) mg/dL Urine Glucose (UA) (NEGATIVE) mg/dL Urine Ketones (NEGATIVE) mg/dL Urine Occult Blood (NEGATIVE) Urine Nitrite (NEGATIVE) Urine Bilirubin (NEGATIVE) Urine Urobilinogen (0.2-1.0) EU/dL Ur Leukocyte Esterase (NEGATIVE) Urine RBC (0-5) Urine WBC (0-5) Ur Epithelial Cells Amorphous Sediment Urine Bacteria Urine Mucus 05/31/20 05/31/20 05/31/20 Range/Units 00:26 00:26 00:26 WBC (4.5-11.0) K/uL RBC (4.30-5.90) M/uL Hgb (12.0-15.0) g/dL Hct (40.0-54.0) % MCV (80-98) fL MCH (27-31) pg MCHC (32-36) % Plt Count (150-400) K/uL Add Manual Diff Neutrophils % (Manual) (36-66) % Band Neutrophils % (5-11) % Lymphocytes % (Manual) (24-44) % Monocytes % (Manual) (2-6) % Eosinophils % (Manual) (2-4) % Polychromasia PT (9.5-12.0) sec INR (0.80-1.20) D-Dimer, Quantitative 1075.44 H (0.0-500.0) ng/mL Puncture Site Rt radial ABG pH 7.457 H (7.350-7.450) ABG pCO2 32.8 L (35.0-42.0) mmHg ABG pO2 83.7 (75.0-100.0) mmHg ABG HCO3 22.8 (22.0-26.0) mmol/L ABG Total CO2 19.7 L (23.0-27.0) mmol/L ABG O2 Saturation 96.3 (95.0-98.0) % ABG O2 Content 19.2 (15.0-23.0) %vol ABG Base Excess 0.1 mm/L ABG Hemoglobin 14.5 (13.5-18.0) g/dL ABG Oxyhemoglobin 93.7 % ABG Carboxyhemoglobin 1.6 (0.0-1.6) % ABG Methemoglobin 1.1 % Omega Test Passed O2 Delivery Device Nasal cannula Oxygen Flow Rate 3.0 L Sodium (140-148) mmol/L Potassium (3.6-5.2) mmol/L Chloride (100-108) mmol/L Carbon Dioxide (21-32) mmol/L Anion Gap (5.0-14.0) mmol/L BUN (7-18) mg/dL Creatinine (0.8-1.3) mg/dL Est Cr Clr Drug Dosing mL/min Estimated GFR (MDRD) (>60) Glucose (74-106) mg/dL Calcium (8.5-10.1) mg/dL Ferritin 425 H (8-388) ng/ml Total Bilirubin (0.2-1.0) mg/dL AST (15-37) U/L ALT (12-78) U/L Alkaline Phosphatase (46-116) U/L Lactate Dehydrogenase (85-227) U/L C-Reactive Protein (0.0-0.3) mg/dL Total Protein (6.4-8.2) g/dL Albumin (3.4-5.0) g/dL Globulin (2.3-3.5) g/dL Albumin/Globulin Ratio (1.2-2.2) Amylase (25-115) U/L Lipase (73-393) U/L Procalcitonin ng/mL Urine Color (YELLOW) Urine Appearance (CLEAR) Urine pH (5.0-8.0) Ur Specific [place] (1.008-1.030) Urine Protein (NEGATIVE) mg/dL Urine Glucose (UA) (NEGATIVE) mg/dL Urine Ketones (NEGATIVE) mg/dL Urine Occult Blood (NEGATIVE) Urine Nitrite (NEGATIVE) Urine Bilirubin (NEGATIVE) Urine Urobilinogen (0.2-1.0) EU/dL Ur Leukocyte Esterase (NEGATIVE) Urine RBC (0-5) Urine WBC (0-5) Ur Epithelial Cells Amorphous Sediment Urine Bacteria Urine Mucus 05/31/20 Range/Units 03:46 WBC (4.5-11.0) K/uL RBC (4.30-5.90) M/uL Hgb (12.0-15.0) g/dL Hct (40.0-54.0) % MCV (80-98) fL MCH (27-31) pg MCHC (32-36) % Plt Count (150-400) K/uL Add Manual Diff Neutrophils % (Manual) (36-66) % Band Neutrophils % (5-11) % Lymphocytes % (Manual) (24-44) % Monocytes % (Manual) (2-6) % Eosinophils % (Manual) (2-4) % Polychromasia PT (9.5-12.0) sec INR (0.80-1.20) D-Dimer, Quantitative (0.0-500.0) ng/mL Puncture Site ABG pH (7.350-7.450) ABG pCO2 (35.0-42.0) mmHg ABG pO2 (75.0-100.0) mmHg ABG HCO3 (22.0-26.0) mmol/L ABG Total CO2 (23.0-27.0) mmol/L ABG O2 Saturation (95.0-98.0) % ABG O2 Content (15.0-23.0) %vol ABG Base Excess mm/L ABG Hemoglobin (13.5-18.0) g/dL ABG Oxyhemoglobin % ABG Carboxyhemoglobin (0.0-1.6) % ABG Methemoglobin % Omega Test O2 Delivery Device Oxygen Flow Rate L Sodium (140-148) mmol/L Potassium (3.6-5.2) mmol/L Chloride (100-108) mmol/L Carbon Dioxide (21-32) mmol/L Anion Gap (5.0-14.0) mmol/L BUN (7-18) mg/dL Creatinine (0.8-1.3) mg/dL Est Cr Clr Drug Dosing mL/min Estimated GFR (MDRD) (>60) Glucose (74-106) mg/dL Calcium (8.5-10.1) mg/dL Ferritin (8-388) ng/ml Total Bilirubin (0.2-1.0) mg/dL AST (15-37) U/L ALT (12-78) U/L Alkaline Phosphatase (46-116) U/L Lactate Dehydrogenase (85-227) U/L C-Reactive Protein (0.0-0.3) mg/dL Total Protein (6.4-8.2) g/dL Albumin (3.4-5.0) g/dL Globulin (2.3-3.5) g/dL Albumin/Globulin Ratio (1.2-2.2) Amylase (25-115) U/L Lipase (73-393) U/L Procalcitonin ng/mL Urine Color Yellow (YELLOW) Urine Appearance Clear (CLEAR) Urine pH 7.0 (5.0-8.0) Ur Specific [place] 1.015 (1.008-1.030) Urine Protein Negative (NEGATIVE) mg/dL Urine Glucose (UA) Negative (NEGATIVE) mg/dL Urine Ketones Negative (NEGATIVE) mg/dL Urine Occult Blood Negative (NEGATIVE) Urine Nitrite Negative (NEGATIVE) Urine Bilirubin Negative (NEGATIVE) Urine Urobilinogen 0.2 (0.2-1.0) EU/dL Ur Leukocyte Esterase Negative (NEGATIVE) Urine RBC Not seen (0-5) Urine WBC Not seen (0-5) Ur Epithelial Cells Rare Amorphous Sediment Not seen Urine Bacteria Not seen Urine Mucus Not seen Med Orders - Current: Current Medications Acetaminophen (Tylenol) 650 mg PO Q4H PRN PRN Reason: Pain (Mild 1-3)/fever Last Admin: 05/31/20 07:18 Dose: 650 mg Documented by: Albuterol (Ventolin Hfa) 0 gm INH Q4H [facility] Last Admin: 05/31/20 11:34 Dose: 2 inhalation Documented by: Bisacodyl (Dulcolax) 5 mg PO DAILY PRN PRN Reason: Constipation Dexamethasone (Decadron) 6 mg IVPUSH BEDTIME [facility] Stop: 06/08/20 21:01 Diclofenac Sodium (Voltaren 1% Gel) 0 gm TOP BID PRN PRN Reason: joint pain Docusate Sodium (Colace) 100 mg PO BID PRN PRN Reason: Constipation Doxepin HCl (Sinequan) 50 mg PO BEDTIME [facility] Enoxaparin Sodium (Lovenox) 40 mg SUBCUT BEDTIME [facility] Last Admin: 05/31/20 01:47 Dose: 40 mg Documented by: Doxycycline Hyclate 100 mg/ (Sodium Chloride) 100 mls @ 100 mls/hr IV Q12H [facility] Last Admin: 05/31/20 02:20 Dose: 100 mls/hr Documented by: Lawn Carbonate (Lithobid) 300 mg PO DAILY [facility] Last Admin: 05/31/20 08:24 Dose: 300 mg Documented by: Lawn Carbonate (Lawn Carbonate) 150 mg PO DAILY [facility] Last Admin: 05/31/20 08:24 Dose: 150 mg Documented by: Lorazepam (Ativan) 1 mg IV Q6H PRN PRN Reason: Nausea/Vomiting Losartan Potassium (Cozaar) 100 mg PO DAILY [facility] Last Admin: 05/31/20 08:24 Dose: 100 mg Documented by: Morphine Sulfate (Morphine) 2 mg IVPUSH Q2H PRN PRN Reason: Pain (severe 7-10) Ondansetron HCl (Zofran Odt) 4 mg PO Q6H PRN PRN Reason: Nausea able to take PO Oxycodone HCl (Oxycodone) 10 mg PO Q4H PRN PRN Reason: Pain (moderate 4-6) Pantoprazole Sodium (Protonix) 40 mg PO ACBREAKFAST [facility] Last Admin: 05/31/20 08:24 Dose: 40 mg Documented by: Risperidone (Risperidal) 1 mg PO BEDTIME [facility] Ropinirole HCl (Requip) 2 mg PO BEDTIME [facility] Tamsulosin HCl (Flomax) 0.4 mg PO DAILY [facility] Last Admin: 05/31/20 08:24 Dose: 0.4 mg Documented by: Venlafaxine HCl (Effexor Xr) 300 mg PO DAILY [facility] Last Admin: 05/31/20 08:24 Dose: 300 mg Documented by: Discontinued Medications Acetaminophen (Tylenol) 650 mg PO Q4H PRN PRN Reason: Fever Greater Than 101 Acetaminophen (Tylenol) 650 mg PO Q4H PRN PRN Reason: Fever Greater Than 101 Dexamethasone (Decadron) 6 mg IVPUSH DAILY [facility] Stop: 06/08/20 09:01 Last Admin: 05/31/20 01:29 Dose: 6 mg Documented by: Sodium Chloride (Normal Saline) Confirm Administered Dose 100 mls @ as directed .ROUTE .[facility] Stop: 05/31/20 02:06 Last Admin: 05/31/20 02:19 Dose: Not Given Documented by: Non-Formulary Medication (Acetylcysteine [Nac]) 600 mg PO DAILY [facility] - Exam Quality Assessment: Supplemental Oxygen, DVT Prophylaxis General: Alert, Oriented, Cooperative, Mild Distress Lungs: Clear to Auscultation, Normal Respiratory Effort Cardiovascular: Regular Rate, Regular Rhythm, No Murmurs GI/Abdominal Exam: Soft, Non-Tender, No Organomegaly, No Distention Extremities: Non-Tender, No Pedal Edema - Patient Data Lab Results Last 24 hrs: Laboratory Results - last 24 hr 05/30/20 05/30/20 05/31/20 Range/Units 22:51 22:51 00:10 WBC 16.4 H (4.5-11.0) K/uL RBC 4.38 (4.30-5.90) M/uL Hgb 13.9 (12.0-15.0) g/dL Hct 41.0 (40.0-54.0) % MCV 94 (80-98) fL MCH 32 H (27-31) pg MCHC 34 (32-36) % Plt Count 595 H (150-400) K/uL Add Manual Diff Yes Neutrophils % (Manual) 72 H (36-66) % Band Neutrophils % 4 L (5-11) % Lymphocytes % (Manual) 11 L (24-44) % Monocytes % (Manual) 9 H (2-6) % Eosinophils % (Manual) 4 (2-4) % Polychromasia PT (9.5-12.0) sec INR (0.80-1.20) D-Dimer, Quantitative (0.0-500.0) ng/mL Puncture Site ABG pH (7.350-7.450) ABG pCO2 (35.0-42.0) mmHg ABG pO2 (75.0-100.0) mmHg ABG HCO3 (22.0-26.0) mmol/L ABG Total CO2 (23.0-27.0) mmol/L ABG O2 Saturation (95.0-98.0) % ABG O2 Content (15.0-23.0) %vol ABG Base Excess mm/L ABG Hemoglobin (13.5-18.0) g/dL ABG Oxyhemoglobin % ABG Carboxyhemoglobin (0.0-1.6) % ABG Methemoglobin % Omega Test O2 Delivery Device Oxygen Flow Rate L Sodium 137 L (140-148) mmol/L Potassium 3.7 (3.6-5.2) mmol/L Chloride 103 (100-108) mmol/L Carbon Dioxide 25 (21-32) mmol/L Anion Gap 12.7 (5.0-14.0) mmol/L BUN 19 H (7-18) mg/dL Creatinine 1.2 (0.8-1.3) mg/dL Est Cr Clr Drug Dosing 74.65 mL/min Estimated GFR (MDRD) > 60 (>60) Glucose 148 H (74-106) mg/dL Calcium 9.8 (8.5-10.1) mg/dL Ferritin (8-388) ng/ml Total Bilirubin 0.3 (0.2-1.0) mg/dL AST 25 (15-37) U/L ALT 52 (12-78) U/L Alkaline Phosphatase 94 (46-116) U/L Lactate Dehydrogenase (85-227) U/L C-Reactive Protein (0.0-0.3) mg/dL Total Protein 6.1 L (6.4-8.2) g/dL Albumin 2.2 L (3.4-5.0) g/dL Globulin 3.9 H (2.3-3.5) g/dL Albumin/Globulin Ratio 0.6 L (1.2-2.2) Amylase 60 (25-115) U/L Lipase 120 (73-393) U/L Procalcitonin ng/mL Urine Color (YELLOW) Urine Appearance (CLEAR) Urine pH (5.0-8.0) Ur Specific [place] (1.008-1.030) Urine Protein (NEGATIVE) mg/dL Urine Glucose (UA) (NEGATIVE) mg/dL Urine Ketones (NEGATIVE) mg/dL Urine Occult Blood (NEGATIVE) Urine Nitrite (NEGATIVE) Urine Bilirubin (NEGATIVE) Urine Urobilinogen (0.2-1.0) EU/dL Ur Leukocyte Esterase (NEGATIVE) Urine RBC (0-5) Urine WBC (0-5) Ur Epithelial Cells Amorphous Sediment Urine Bacteria Urine Mucus 05/31/20 05/31/20 05/31/20 Range/Units 00:11 00:11 00:11 WBC (4.5-11.0) K/uL RBC (4.30-5.90) M/uL Hgb (12.0-15.0) g/dL Hct (40.0-54.0) % MCV (80-98) fL MCH (27-31) pg MCHC (32-36) % Plt Count (150-400) K/uL Add Manual Diff Neutrophils % (Manual) (36-66) % Band Neutrophils % (5-11) % Lymphocytes % (Manual) (24-44) % Monocytes % (Manual) (2-6) % Eosinophils % (Manual) (2-4) % Polychromasia PT 10.6 (9.5-12.0) sec INR 0.97 (0.80-1.20) D-Dimer, Quantitative (0.0-500.0) ng/mL Puncture Site ABG pH (7.350-7.450) ABG pCO2 (35.0-42.0) mmHg ABG pO2 (75.0-100.0) mmHg ABG HCO3 (22.0-26.0) mmol/L ABG Total CO2 (23.0-27.0) mmol/L ABG O2 Saturation (95.0-98.0) % ABG O2 Content (15.0-23.0) %vol ABG Base Excess mm/L ABG Hemoglobin (13.5-18.0) g/dL ABG Oxyhemoglobin % ABG Carboxyhemoglobin (0.0-1.6) % ABG Methemoglobin % Omega Test O2 Delivery Device Oxygen Flow Rate L Sodium (140-148) mmol/L Potassium (3.6-5.2) mmol/L Chloride (100-108) mmol/L Carbon Dioxide (21-32) mmol/L Anion Gap (5.0-14.0) mmol/L BUN (7-18) mg/dL Creatinine (0.8-1.3) mg/dL Est Cr Clr Drug Dosing mL/min Estimated GFR (MDRD) (>60) Glucose (74-106) mg/dL Calcium (8.5-10.1) mg/dL Ferritin (8-388) ng/ml Total Bilirubin (0.2-1.0) mg/dL AST (15-37) U/L ALT (12-78) U/L Alkaline Phosphatase (46-116) U/L Lactate Dehydrogenase 304 H (85-227) U/L C-Reactive Protein 9.92 H (0.0-0.3) mg/dL Total Protein (6.4-8.2) g/dL Albumin (3.4-5.0) g/dL Globulin (2.3-3.5) g/dL Albumin/Globulin Ratio (1.2-2.2) Amylase (25-115) U/L Lipase (73-393) U/L Procalcitonin 0.06 ng/mL Urine Color (YELLOW) Urine Appearance (CLEAR) Urine pH (5.0-8.0) Ur Specific [place]le (1.008-1.030) Urine Protein (NEGATIVE) mg/dL Urine Glucose (UA) (NEGATIVE) mg/dL Urine Ketones (NEGATIVE) mg/dL Urine Occult Blood (NEGATIVE) Urine Nitrite (NEGATIVE) Urine Bilirubin (NEGATIVE) Urine Urobilinogen (0.2-1.0) EU/dL Ur Leukocyte Esterase (NEGATIVE) Urine RBC (0-5) Urine WBC (0-5) Ur Epithelial Cells Amorphous Sediment Urine Bacteria Urine Mucus 05/31/20 05/31/20 05/31/20 Range/Units 00:26 00:26 00:26 WBC (4.5-11.0) K/uL RBC (4.30-5.90) M/uL Hgb (12.0-15.0) g/dL Hct (40.0-54.0) % MCV (80-98) fL MCH (27-31) pg MCHC (32-36) % Plt Count (150-400) K/uL Add Manual Diff Neutrophils % (Manual) (36-66) % Band Neutrophils % (5-11) % Lymphocytes % (Manual) (24-44) % Monocytes % (Manual) (2-6) % Eosinophils % (Manual) (2-4) % Polychromasia PT (9.5-12.0) sec INR (0.80-1.20) D-Dimer, Quantitative 1075.44 H (0.0-500.0) ng/mL Puncture Site Rt radial ABG pH 7.457 H (7.350-7.450) ABG pCO2 32.8 L (35.0-42.0) mmHg ABG pO2 83.7 (75.0-100.0) mmHg ABG HCO3 22.8 (22.0-26.0) mmol/L ABG Total CO2 19.7 L (23.0-27.0) mmol/L ABG O2 Saturation 96.3 (95.0-98.0) % ABG O2 Content 19.2 (15.0-23.0) %vol ABG Base Excess 0.1 mm/L ABG Hemoglobin 14.5 (13.5-18.0) g/dL ABG Oxyhemoglobin 93.7 % ABG Carboxyhemoglobin 1.6 (0.0-1.6) % ABG Methemoglobin 1.1 % Omega Test Passed O2 Delivery Device Nasal cannula Oxygen Flow Rate 3.0 L Sodium (140-148) mmol/L Potassium (3.6-5.2) mmol/L Chloride (100-108) mmol/L Carbon Dioxide (21-32) mmol/L Anion Gap (5.0-14.0) mmol/L BUN (7-18) mg/dL Creatinine (0.8-1.3) mg/dL Est Cr Clr Drug Dosing mL/min Estimated GFR (MDRD) (>60) Glucose (74-106) mg/dL Calcium (8.5-10.1) mg/dL Ferritin 425 H (8-388) ng/ml Total Bilirubin (0.2-1.0) mg/dL AST (15-37) U/L ALT (12-78) U/L Alkaline Phosphatase (46-116) U/L Lactate Dehydrogenase (85-227) U/L C-Reactive Protein (0.0-0.3) mg/dL Total Protein (6.4-8.2) g/dL Albumin (3.4-5.0) g/dL Globulin (2.3-3.5) g/dL Albumin/Globulin Ratio (1.2-2.2) Amylase (25-115) U/L Lipase (73-393) U/L Procalcitonin ng/mL Urine Color (YELLOW) Urine Appearance (CLEAR) Urine pH (5.0-8.0) Ur Specific [place] (1.008-1.030) Urine Protein (NEGATIVE) mg/dL Urine Glucose (UA) (NEGATIVE) mg/dL Urine Ketones (NEGATIVE) mg/dL Urine Occult Blood (NEGATIVE) Urine Nitrite (NEGATIVE) Urine Bilirubin (NEGATIVE) Urine Urobilinogen (0.2-1.0) EU/dL Ur Leukocyte Esterase (NEGATIVE) Urine RBC (0-5) Urine WBC (0-5) Ur Epithelial Cells Amorphous Sediment Urine Bacteria Urine Mucus 05/31/20 Range/Units 03:46 WBC (4.5-11.0) K/uL RBC (4.30-5.90) M/uL Hgb (12.0-15.0) g/dL Hct (40.0-54.0) % MCV (80-98) fL MCH (27-31) pg MCHC (32-36) % Plt Count (150-400) K/uL Add Manual Diff Neutrophils % (Manual) (36-66) % Band Neutrophils % (5-11) % Lymphocytes % (Manual) (24-44) % Monocytes % (Manual) (2-6) % Eosinophils % (Manual) (2-4) % Polychromasia PT (9.5-12.0) sec INR (0.80-1.20) D-Dimer, Quantitative (0.0-500.0) ng/mL Puncture Site ABG pH (7.350-7.450) ABG pCO2 (35.0-42.0) mmHg ABG pO2 (75.0-100.0) mmHg ABG HCO3 (22.0-26.0) mmol/L ABG Total CO2 (23.0-27.0) mmol/L ABG O2 Saturation (95.0-98.0) % ABG O2 Content (15.0-23.0) %vol ABG Base Excess mm/L ABG Hemoglobin (13.5-18.0) g/dL ABG Oxyhemoglobin % ABG Carboxyhemoglobin (0.0-1.6) % ABG Methemoglobin % Omega Test O2 Delivery Device Oxygen Flow Rate L Sodium (140-148) mmol/L Potassium (3.6-5.2) mmol/L Chloride (100-108) mmol/L Carbon Dioxide (21-32) mmol/L Anion Gap (5.0-14.0) mmol/L BUN (7-18) mg/dL Creatinine (0.8-1.3) mg/dL Est Cr Clr Drug Dosing mL/min Estimated GFR (MDRD) (>60) Glucose (74-106) mg/dL Calcium (8.5-10.1) mg/dL Ferritin (8-388) ng/ml Total Bilirubin (0.2-1.0) mg/dL AST (15-37) U/L ALT (12-78) U/L Alkaline Phosphatase (46-116) U/L Lactate Dehydrogenase (85-227) U/L C-Reactive Protein (0.0-0.3) mg/dL Total Protein (6.4-8.2) g/dL Albumin (3.4-5.0) g/dL Globulin (2.3-3.5) g/dL Albumin/Globulin Ratio (1.2-2.2) Amylase (25-115) U/L Lipase (73-393) U/L Procalcitonin ng/mL Urine Color Yellow (YELLOW) Urine Appearance Clear (CLEAR) Urine pH 7.0 (5.0-8.0) Ur Specific [place] 1.015 (1.008-1.030) Urine Protein Negative (NEGATIVE) mg/dL Urine Glucose (UA) Negative (NEGATIVE) mg/dL Urine Ketones Negative (NEGATIVE) mg/dL Urine Occult Blood Negative (NEGATIVE) Urine Nitrite Negative (NEGATIVE) Urine Bilirubin Negative (NEGATIVE) Urine Urobilinogen 0.2 (0.2-1.0) EU/dL Ur Leukocyte Esterase Negative (NEGATIVE) Urine RBC Not seen (0-5) Urine WBC Not seen (0-5) Ur Epithelial Cells Rare Amorphous Sediment Not seen Urine Bacteria Not seen Urine Mucus Not seen Result Diagrams: 05/30/20 22:51 05/30/20 22:51 Sepsis Event Note - Evaluation Sepsis Screening Result: No Definite Risk - Focused Exam Vital Signs: Vital Signs Temp Temp Pulse Resp BP BP Pulse Ox 05/31/20 08:24 128/62 05/31/20 08:00 97 F 85 16 127/58 L 96 05/31/20 06:00 99.1 F 85 92 L 05/31/20 04:00 98.3 F 23 H 144/69 H 93 L 05/31/20 03:30 98.3 F 05/31/20 02:21 100.3 F 05/31/20 01:07 100.3 F 22 H 128/74 93 L 05/31/20 00:39 93 L - Problem List Review Problem List Initiated/Reviewed/Updated: Yes - Plan Plan:: ASSESSMENT AND PLAN OF CARE COVID-19 INFECTION WITH PNEUMONIA WITH HYPOXIA- Mr. Paz was noted to be positive about 05/17/2020. He was admitted to [facility] from [place] on 05/22/2020 to 05/26/2020 for Covid-19 with respiratory failure, treated with Remdesivir and Dexamethasone. He was discharge back to [facility] where he has been until this evening when he came back to the ER via EMS for hypoxia, fever, and worsen symptoms. Possible bacterial infection at this time although less likely, elevated white count likely related to recent therapy with dexamethasone. -continuous pulse oximetry -Supplemental oxygen as needed -IV Doxy 100 mg every 12 hours -IV Dexamethazone 6 mg daily -labs blood cultures pending -Lovenox 40 mg subcu every 12 hours SLEEP APNEA -Obtain CPAP from treatment center for him to use while in the hospital CHEMICAL DEPENDENCY- Methamphetamine and alcohol use, prior to this admission at [facility], no drugs of abuse for >3 weeks -monitor for any concerns of relapse MAINTENANCE ISSUES -DVT prophylaxis; current therapy with Lovenox should provide adequate DVT prophylaxis -GI prophylaxis; IV Protonix 40 mg daily -[place] catheter; not indicated -Nutrition; regular diet -Nicotine dependence; not required- non smoker -consult to Spiritual CODE STATUS-FULL CODE ADMISSION STATUS-patient will be admitted to inpatient status, expect at least a 2 night hospital stay for evaluation and management of problems as outlined above. At the time of this admission I do not reasonably expected evaluation an d management of this problem will require more than a 96 hour hospital stay. DISPOSITION-anticipate discharge to home or [place] for continuation of treatment for chemical dependency after the hospital stay. PRIMARY CARE PROVIDER- HOWIE Wright. HOSPITALIST - Dr. Shoemaker - Mortality Measure Prognosis:: Good
[2020-05-31] MEDS: Dexamethasone 4 MG/ML SDV IVPUSH SCH (20:59)
[2020-05-31] MEDS: risperiDONE 1 MG Tab PO SCH (20:59)
[2020-05-31] MEDS: rOPINIRole 1 MG Tab PO SCH (20:59)
[2020-05-31] MEDS: Doxepin 25 MG Cap PO SCH (20:59)
[2020-06-01] MEDS: Doxycycline 100 MG in Sodium Chloride 0.9% 100 ML IV SCH ×2 (02:17→14:10)
[2020-06-01] MEDS: Albuterol 8 GM Inhaler INH SCH ×6 (02:21→23:41)
[2020-06-01] MEDS: Losartan 50 MG Tab PO SCH (08:59)
[2020-06-01] MEDS: Tamsulosin 0.4 MG Cap.ER PO SCH (08:59)
[2020-06-01] MEDS: Pantoprazole 40 MG Tab.CR PO SCH (08:59)
[2020-06-01] MEDS: Lithium Carbonate 300 MG Tab.ER PO SCH (08:59)
[2020-06-01] MEDS: Venlafaxine 75 MG Cap.ER PO SCH (08:59)
--- NOTE | 2020-06-01 11:08 | PCM.PN ---
- General Info Date of Service: 06/01/20 Subjective Update: Mr. Paz has remained stable over the past 24 hours. He is not currently requiring supplemental oxygen and when taken on a walk this morning on room air did not have significant desaturation. Energy level seems to be improving and he has remained afebrile. Functional Status: Reports: Tolerating Diet, Ambulating, Urinating - Review of Systems General: Reports: Weakness, Fatigue. Denies: Fever, Chills Pulmonary: Reports: Shortness of Breath. Denies: Pleuritic Chest Pain, Cough, Sputum, Hemoptysis, Wheezing Cardiovascular: Reports: Dyspnea on Exertion. Denies: Chest Pain, Palpitations, Orthopnea, PND, Edema, Lightheadedness Gastrointestinal: Reports: No Symptoms - Patient Data Vitals - Most Recent: Last Vital Signs Temp 98.2 F 06/01/20 08:28 Pulse 85 06/01/20 08:28 Resp 16 06/01/20 08:28 BP 142/84 H 06/01/20 08:59 Pulse Ox 93 L 06/01/20 08:28 Weight - Most Recent: 315 lb 7.986 oz I&O - Last 24 Hours: Intake & Output 05/31/20 06/01/20 06/01/20 22:59 06:59 14:59 Intake Total 600 900 Output Total 900 2400 750 Balance -300 -1500 -750 Lab Results Last 24 Hours: Laboratory Results - last 24 hr 06/01/20 06/01/20 06/01/20 Range/Units 08:32 08:32 08:32 WBC 18.8 H (4.5-11.0) K/uL RBC 4.28 L (4.30-5.90) M/uL Hgb 13.3 (12.0-15.0) g/dL Hct 40.4 (40.0-54.0) % MCV 94 (80-98) fL MCH 31 (27-31) pg MCHC 33 (32-36) % Plt Count 656 H (150-400) K/uL Add Manual Diff Yes Neutrophils % (Manual) 87 H (36-66) % Lymphocytes % (Manual) 5 L (24-44) % Monocytes % (Manual) 8 H (2-6) % Atypical Lymphocytes Few Anisocytosis Occasional Spherocytes Few H D-Dimer, Quantitative 605.79 H (0.0-500.0) ng/mL Sodium 140 (140-148) mmol/L Potassium 4.5 (3.6-5.2) mmol/L Chloride 106 (100-108) mmol/L Carbon Dioxide 24 (21-32) mmol/L Anion Gap 9.7 (5.0-14.0) mmol/L BUN 20 H (7-18) mg/dL Creatinine 1.0 (0.8-1.3) mg/dL Est Cr Clr Drug Dosing 89.58 mL/min Estimated GFR (MDRD) > 60 (>60) Glucose 189 H (74-106) mg/dL Calcium 9.1 (8.5-10.1) mg/dL Total Bilirubin 0.2 (0.2-1.0) mg/dL AST 20 (15-37) U/L ALT 52 (12-78) U/L Alkaline Phosphatase 87 (46-116) U/L C-Reactive Protein 3.96 H (0.0-0.3) mg/dL Total Protein 6.3 L (6.4-8.2) g/dL Albumin 2.4 L (3.4-5.0) g/dL Globulin 3.9 H (2.3-3.5) g/dL Albumin/Globulin Ratio 0.6 L (1.2-2.2) Danie Results Last 24 Hours: Microbiology 05/31/20 01:00 Aerobic Blood Culture - Preliminary Blood - Arterial Line - Direct Stick NO GROWTH AFTER 1 DAY Anaerobic Blood Culture - Preliminary NO GROWTH AFTER 1 DAY Med Orders - Current: Current Medications Acetaminophen (Tylenol) 650 mg PO Q4H PRN PRN Reason: Pain (Mild 1-3)/fever Last Admin: 05/31/20 07:18 Dose: 650 mg Documented by: Albuterol (Ventolin Hfa) 0 gm INH Q4H DAIS[facility] Last Admin: 06/01/20 08:41 Dose: 2 inhalation Documented by: Bisacodyl (Dulcolax) 5 mg PO DAILY PRN PRN Reason: Constipation Dexamethasone (Decadron) 6 mg IVPUSH BEDTIME [facility] Stop: 06/08/20 21:01 Last Admin: 05/31/20 20:59 Dose: 6 mg Documented by: Diclofenac Sodium (Voltaren 1% Gel) 0 gm TOP BID PRN PRN Reason: joint pain Docusate Sodium (Colace) 100 mg PO BID PRN PRN Reason: Constipation Doxepin HCl (Sinequan) 50 mg PO BEDTIME [facility] Last Admin: 05/31/20 20:59 Dose: 50 mg Documented by: Enoxaparin Sodium (Lovenox) 40 mg SUBCUT BEDTIME [facility] Last Admin: 05/31/20 20:58 Dose: 40 mg Documented by: Doxycycline Hyclate 100 mg/ (Sodium Chloride) 100 mls @ 100 mls/hr IV Q12H [facility] Last Admin: 06/01/20 02:17 Dose: 100 mls/hr Documented by: [place] Carbonate (Lithobid) 300 mg PO DAILY [facility] Last Admin: 06/01/20 08:59 Dose: 300 mg Documented by: [place] Carbonate ([place] Carbonate) 150 mg PO DAILY [facility] Last Admin: 06/01/20 08:59 Dose: 150 mg Documented by: Lorazepam (Ativan) 1 mg IV Q6H PRN PRN Reason: Nausea/Vomiting Losartan Potassium (Cozaar) 100 mg PO DAILY [facility] Last Admin: 06/01/20 08:59 Dose: 100 mg Documented by: Morphine Sulfate (Morphine) 2 mg IVPUSH Q2H PRN PRN Reason: Pain (severe 7-10) Ondansetron HCl (Zofran Odt) 4 mg PO Q6H PRN PRN Reason: Nausea able to take PO Oxycodone HCl (Oxycodone) 10 mg PO Q4H PRN PRN Reason: Pain (moderate 4-6) Pantoprazole Sodium (Protonix) 40 mg PO ACBREAKFAST [facility] Last Admin: 06/01/20 08:59 Dose: 40 mg Documented by: Risperidone (Risperidal) 1 mg PO BEDTIME [facility] Last Admin: 05/31/20 20:59 Dose: 1 mg Documented by: Ropinirole HCl (Requip) 2 mg PO BEDTIME [facility] Last Admin: 05/31/20 20:59 Dose: 2 mg Documented by: Tamsulosin HCl (Flomax) 0.4 mg PO DAILY [facility] Last Admin: 06/01/20 08:59 Dose: 0.4 mg Documented by: Venlafaxine HCl (Effexor Xr) 300 mg PO DAILY [facility] Last Admin: 06/01/20 08:59 Dose: 300 mg Documented by: Discontinued Medications Acetaminophen (Tylenol) 650 mg PO Q4H PRN PRN Reason: Fever Greater Than 101 Acetaminophen (Tylenol) 650 mg PO Q4H PRN PRN Reason: Fever Greater Than 101 Dexamethasone (Decadron) 6 mg IVPUSH DAILY [facility] Stop: 06/08/20 09:01 Last Admin: 05/31/20 01:29 Dose: 6 mg Documented by: Sodium Chloride (Normal Saline) Confirm Administered Dose 100 mls @ as directed .ROUTE .STK-MED ONE Stop: 05/31/20 02:06 Last Admin: 05/31/20 02:19 Dose: Not Given Documented by: Non-Formulary Medication (Acetylcysteine [Nac]) 600 mg PO DAILY DAISHA - Exam Quality Assessment: DVT Prophylaxis. No: Supplemental Oxygen General: Alert, Oriented, Cooperative, Mild Distress Lungs: Clear to Auscultation, Normal Respiratory Effort Cardiovascular: Regular Rate, Regular Rhythm, No Murmurs GI/Abdominal Exam: Soft, Non-Tender, No Organomegaly, No Distention Extremities: Non-Tender, No Pedal Edema - Patient Data Lab Results Last 24 hrs: Laboratory Results - last 24 hr 06/01/20 06/01/20 06/01/20 Range/Units 08:32 08:32 08:32 WBC 18.8 H (4.5-11.0) K/uL RBC 4.28 L (4.30-5.90) M/uL Hgb 13.3 (12.0-15.0) g/dL Hct 40.4 (40.0-54.0) % MCV 94 (80-98) fL MCH 31 (27-31) pg MCHC 33 (32-36) % Plt Count 656 H (150-400) K/uL Add Manual Diff Yes Neutrophils % (Manual) 87 H (36-66) % Lymphocytes % (Manual) 5 L (24-44) % Monocytes % (Manual) 8 H (2-6) % Atypical Lymphocytes Few Anisocytosis Occasional Spherocytes Few H D-Dimer, Quantitative 605.79 H (0.0-500.0) ng/mL Sodium 140 (140-148) mmol/L Potassium 4.5 (3.6-5.2) mmol/L Chloride 106 (100-108) mmol/L Carbon Dioxide 24 (21-32) mmol/L Anion Gap 9.7 (5.0-14.0) mmol/L BUN 20 H (7-18) mg/dL Creatinine 1.0 (0.8-1.3) mg/dL Est Cr Clr Drug Dosing 89.58 mL/min Estimated GFR (MDRD) > 60 (>60) Glucose 189 H (74-106) mg/dL Calcium 9.1 (8.5-10.1) mg/dL Total Bilirubin 0.2 (0.2-1.0) mg/dL AST 20 (15-37) U/L ALT 52 (12-78) U/L Alkaline Phosphatase 87 (46-116) U/L C-Reactive Protein 3.96 H (0.0-0.3) mg/dL Total Protein 6.3 L (6.4-8.2) g/dL Albumin 2.4 L (3.4-5.0) g/dL Globulin 3.9 H (2.3-3.5) g/dL Albumin/Globulin Ratio 0.6 L (1.2-2.2) Result Diagrams: 06/01/20 08:32 06/01/20 08:32 Danie Results Last 24 hrs: Microbiology 05/31/20 01:00 Aerobic Blood Culture - Preliminary Blood - Arterial Line - Direct Stick NO GROWTH AFTER 1 DAY Anaerobic Blood Culture - Preliminary NO GROWTH AFTER 1 DAY Sepsis Event Note - Evaluation Sepsis Screening Result: No Definite Risk - Focused Exam Vital Signs: Vital Signs Temp Temp Pulse Resp BP BP Pulse Ox 06/01/20 08:59 142/84 H 06/01/20 08:28 98.2 F 85 16 142/84 H 93 L 06/01/20 07:11 91 L 06/01/20 02:21 98.2 F 86 22 H 163/92 H 92 L 06/01/20 01:20 96 06/01/20 00:31 92 L 06/01/20 00:00 92 L - Problem List Review Problem List Initiated/Reviewed/Updated: Yes - My Orders Last 24 Hours: My Active Orders 06/01/20 09:40 RT Evaluate for Home Oxygen [RC] Click to Edit 06/01/20 11:02 Discontinue Telemetry Monitoring [Cardiac Monitoring Discontinue] [RC] Click to Edit 06/02/20 05:00 CBC WITH AUTO DIFF [HEME] Timed COMPREHENSIVE METABOLIC PN,CMP [CHEM] Timed 06/02/20 05:11 CRP [C-REACTIVE PROTEIN] [CHEM] AM D Dimer [D-DIMER QUANTITATIVE] [COAG] AM - Plan Plan:: ASSESSMENT AND PLAN OF CARE COVID-19 INFECTION WITH PNEUMONIA WITH HYPOXIA- Mr. Paz was noted to be positive about 05/17/2020. He was admitted to [facility] from [place] on 05/22/2020 to 05/26/2020 for Covid-19 with respiratory failure, treated with Remdesivir and Dexamethasone. He was discharge back to [facility] where he has been until this evening when he came back to the ER via EMS for hypoxia, fever, and worsen symptoms. Possible bacterial infection at this time although less likely, elevated white count likely related to recent therapy with dexamethasone. -Supplemental oxygen as needed -IV Doxy 100 mg every 12 hours -IV Dexamethazone 6 mg daily -labs blood cultures pending -Lovenox 40 mg subcu every 12 hours SLEEP APNEA -Obtain CPAP from treatment center for him to use while in the hospital CHEMICAL DEPENDENCY- Methamphetamine and alcohol use, prior to this admission at [place] [facility], no drugs of abuse for >3 weeks -monitor for any concerns of relapse MAINTENANCE ISSUES -DVT prophylaxis; current therapy with Lovenox should provide adequate DVT prophylaxis -GI prophylaxis; IV Protonix 40 mg daily -[place] catheter; not indicated -Nutrition; regular diet -Nicotine dependence; not required- non smoker -consult to Spiritual CODE STATUS-FULL CODE ADMISSION STATUS-patient will be admitted to inpatient status, expect at least a 2 night hospital stay for evaluation and management of problems as outlined above. At the time of this admission I do not reasonably expected evaluation and management of this problem will require more than a 96 hour hospital stay. DISPOSITION-anticipate discharge to home tomorrow PRIMARY CARE PROVIDER- HOWIE Wright. HOSPITALIST - Dr. Shoemaker
[2020-06-01] MEDS: Dexamethasone 4 MG/ML SDV IVPUSH SCH (20:51)
[2020-06-01] MEDS: risperiDONE 1 MG Tab PO SCH (20:52)
[2020-06-01] MEDS: Doxepin 25 MG Cap PO SCH (20:52)
[2020-06-01] MEDS: rOPINIRole 1 MG Tab PO SCH (20:52)
[2020-06-01] MEDS: Enoxaparin 40 MG/0.4 ML Syringe SUBCUT SCH (20:52)
[2020-06-02] MEDS: Doxycycline 100 MG in Sodium Chloride 0.9% 100 ML IV SCH (02:41)
[2020-06-02] MEDS: Albuterol 8 GM Inhaler INH SCH ×3 (02:42→10:53)
[2020-06-02] MEDS: Pantoprazole 40 MG Tab.CR PO SCH (07:25)
[2020-06-02] MEDS: Lithium Carbonate 300 MG Tab.ER PO SCH (09:00)
[2020-06-02] MEDS: Tamsulosin 0.4 MG Cap.ER PO SCH (09:23)
[2020-06-02] MEDS: Venlafaxine 75 MG Cap.ER PO SCH (09:23)
[2020-06-02] MEDS: Losartan 50 MG Tab PO SCH (09:24)
--- NOTE | 2020-06-02 10:04 | PCM.DCSUM1 ---
Discharge Summary - Hospital Course Brief History: Mr. Paz is a 55-year-old gentleman who was admitted through the emergency department with weakness and shortness of breath, hypoxia, secondary to recent COVID-19 infection. - Discharge Data Discharge Date: 06/02/20 Discharge Disposition: Home, Self-Care 01 Condition: Stable - Referral to Home Health Primary Care Physician: PCP None - Discharge Diagnosis/Problem(s) (1) Pneumonia due to COVID-19 virus SNOMED Code(s): 826893189247455911 ICD Code: U07.1 - COVID-19; J12.82 - PNEUMONIA DUE TO CORONAVIRUS DISEASE 2019 Status: Acute Priority: High Current Visit: Yes (2) Post-COVID syndrome SNOMED Code(s): 480612193, 175244631465159568 ICD Code: B94.8 - SEQUELAE OF OTH INFECTIOUS AND PARASITIC DISEASES Status: Acute Current Visit: No (3) Hypoxia SNOMED Code(s): 000001221 ICD Code: R09.02 - HYPOXEMIA Status: Acute Priority: High Current Visit: Yes - Patient Summary/Data Hospital Course: Mr. Paz is a 55-year-old male presenting via [facility] from [place] for evaluation of increasing shortness of breath and hypoxia. Patient is known to have COVID-19 (day 12) and was seen in the ER yesterday for increasing shortness of breath. His work-up yesterday was unremarkable other than his COVID-19 and pneumonia secondary to the COVID-19. The patient remained stable through his evaluation and was discharged back to [place] after his work-up yesterday. Today he was noted to be more short of breath and EMS reports that his SPO2 was between 85 and 89% on room air. They did place him on 4 L nasal cannula and the patient started to feel better with an SPO2 of 93%. The patient is currently in treatment at [place] for methamphetamine abuse and has recently been hospitalized with complications related to the COVID-19, namely pneumonia. He expresses that he is experiencing exertional dyspnea with going up stairwells. He is still having low-grade fever and chills. He still reports diminished sense of taste or smell. As of his hypoxia, patient was brought in for evaluation. [place] does not have the ability to provide supplemental oxygen. On admission he was given IV fluids for hydration and started on IV antibiotic therapy with doxycycline to cover for possible bacterial component to pulmonary infiltrates. He was also placed back on IV Decadron 6 mg daily. During his hospital stay he did did improve and by the time of discharge was not requiring supplemental oxygen at rest or with activity. He was advised not to return to [place] for ongoing treatment at this time because of his shortness of breath related to recent Covid infection and inability to walk stairs without becoming hypoxic. He will be discharged home on additional 4 days of oral doxycycline. He will also be placed on a dexamethasone taper 4 mg daily for 4 days, then 2 mg daily for 4 days, then 1 mg daily for 4 days. Activity will be as tolerated and he will resume his usual diet. Follow-up appointment will be scheduled with his primary care provider this next week. - Patient Instructions Diet: Usual Diet as Tolerated Activity: As Tolerated Other/Special Instructions: Please schedule follow-up appointment with primary care provider this next week. - Discharge Plan *PRESCRIPTION DRUG MONITORING PROGRAM REVIEWED*: Not Applicable *COPY OF PRESCRIPTION DRUG MONITORING REPORT IN PATIENT PEDRO: Not Applicable Prescriptions/Med Rec: dexAMETHasone [Dexamethasone] 4 mg PO DAILY #28 tab Doxycycline [Vibra-Tabs] 100 mg PO Q12HR #8 tab Home Medications: Home Meds Acetaminophen [Acetaminophen Extra Strength] 500 - 1,000 mg PO ASDIRECTED PRN 05/22/20 [History] Cetirizine HCl 10 mg PO DAILY 05/22/20 [History] Cholecalciferol (Vitamin D3) [Vitamin D3] 250 mcg PO DAILY 05/22/20 [History] Diclofenac Sodium [Voltaren 1% Gel] 2 inch TOP BID PRN 05/22/20 [History] Docusate Sodium 100 mg PO BID PRN 05/22/20 [History] Doxepin [SINEquan] 50 mg PO BEDTIME 05/22/20 [History] Doxycycline Hyclate 100 mg PO BID 05/22/20 [History] Ibuprofen 200 - 400 mg PO ASDIRECTED PRN 05/22/20 [History] [place] Carbonate [[place] Carbonate ER] 450 mg PO DAILY 05/22/20 [History] Losartan [Cozaar] 100 mg PO DAILY 05/22/20 [History] Oxybutynin Chloride [Oxybutynin Chloride ER] 10 mg PO DAILY 05/22/20 [History] Tamsulosin HCl 0.4 mg PO DAILY 05/22/20 [History] Venlafaxine HCl [Venlafaxine ER] 300 mg PO DAILY 05/22/20 [History] Zinc 50 mg PO DAILY 05/22/20 [History] rOPINIRole [Requip] 2 mg PO BEDTIME 05/22/20 [History] risperiDONE [Risperidone] 1 mg PO BEDTIME 05/22/20 [History] Albuterol Sulfate [Albuterol Sulfate Hfa] 2 puff IH BID 05/29/20 [History] Doxycycline [Vibra-Tabs] 100 mg PO Q12HR #8 tab 06/02/20 [Rx] dexAMETHasone [Dexamethasone] 4 mg PO DAILY #28 tab 06/02/20 [Rx] Patient Handouts: COVID-19 Frequently Asked Questions, COVID-19 Vaccine Information - Discharge Summary/Plan Comment DC Time >30 min.: No - Patient Data Vitals - Most Recent: Last Vital Signs Temp 97.4 F 06/02/20 07:00 Pulse 77 06/02/20 07:00 Resp 20 06/02/20 07:00 BP 140/88 06/02/20 09:24 Pulse Ox 96 06/02/20 07:00 Weight - Most Recent: 315 lb 7.986 oz I&O - Last 24 hours: Intake & Output 06/01/20 06/02/20 06/02/20 22:59 06:59 14:59 Intake Total 2880 100 Output Total 550 Balance 2330 100 Lab Results - Last 24 hrs: Laboratory Results - last 24 hr 06/02/20 06/02/20 06/02/20 Range/Units 04:00 04:00 04:00 WBC 16.6 H (4.5-11.0) K/uL RBC 4.27 L (4.30-5.90) M/uL Hgb 13.2 (12.0-15.0) g/dL Hct 40.5 (40.0-54.0) % MCV 95 (80-98) fL MCH 31 (27-31) pg MCHC 33 (32-36) % Plt Count 657 H (150-400) K/uL Neut % (Auto) 87 H (36-66) % Lymph % (Auto) 7 L (24-44) % [place] % (Auto) 6 (2-6) % Eos % (Auto) 0 L (2-4) % Baso % (Auto) 0 (0-1) % D-Dimer, Quantitative 498.37 (0.0-500.0) ng/mL Sodium 139 L (140-148) mmol/L Potassium 4.5 (3.6-5.2) mmol/L Chloride 105 (100-108) mmol/L Carbon Dioxide 27 (21-32) mmol/L Anion Gap 11.5 (5.0-14.0) mmol/L BUN 18 (7-18) mg/dL Creatinine 1.1 (0.8-1.3) mg/dL Est Cr Clr Drug Dosing 81.44 mL/min Estimated GFR (MDRD) > 60 (>60) Glucose 197 H (74-106) mg/dL Calcium 9.6 (8.5-10.1) mg/dL Total Bilirubin 0.2 (0.2-1.0) mg/dL AST 30 (15-37) U/L ALT 73 (12-78) U/L Alkaline Phosphatase 86 (46-116) U/L C-Reactive Protein (0.0-0.3) mg/dL Total Protein 6.3 L (6.4-8.2) g/dL Albumin 2.5 L (3.4-5.0) g/dL Globulin 3.8 H (2.3-3.5) g/dL Albumin/Globulin Ratio 0.7 L (1.2-2.2) 06/02/20 Range/Units 04:00 WBC (4.5-11.0) K/uL RBC (4.30-5.90) M/uL Hgb (12.0-15.0) g/dL Hct (40.0-54.0) % MCV (80-98) fL MCH (27-31) pg MCHC (32-36) % Plt Count (150-400) K/uL Neut % (Auto) (36-66) % Lymph % (Auto) (24-44) % [place] % (Auto) (2-6) % Eos % (Auto) (2-4) % Baso % (Auto) (0-1) % D-Dimer, Quantitative (0.0-500.0) ng/mL Sodium (140-148) mmol/L Potassium (3.6-5.2) mmol/L Chloride (100-108) mmol/L Carbon Dioxide (21-32) mmol/L Anion Gap (5.0-14.0) mmol/L BUN (7-18) mg/dL Creatinine (0.8-1.3) mg/dL Est Cr Clr Drug Dosing mL/min Estimated GFR (MDRD) (>60) Glucose (74-106) mg/dL Calcium (8.5-10.1) mg/dL Total Bilirubin (0.2-1.0) mg/dL AST (15-37) U/L ALT (12-78) U/L Alkaline Phosphatase (46-116) U/L C-Reactive Protein 1.79 H (0.0-0.3) mg/dL Total Protein (6.4-8.2) g/dL Albumin (3.4-5.0) g/dL Globulin (2.3-3.5) g/dL Albumin/Globulin Ratio (1.2-2.2) DEMETRIUS Results - Last 24 hrs: Microbiology 05/31/20 01:00 Aerobic Blood Culture - Preliminary Blood - Arterial Line - Direct Stick NO GROWTH AFTER 2 DAYS Anaerobic Blood Culture - Preliminary NO GROWTH AFTER 2 DAYS Med Orders - Current: Current Medications Acetaminophen (Tylenol) 650 mg PO Q4H PRN PRN Reason: Pain (Mild 1-3)/fever Last Admin: 05/31/20 07:18 Dose: 650 mg Documented by: Albuterol (Ventolin Hfa) 0 gm INH Q4H [facility] Last Admin: 06/02/20 07:35 Dose: 2 inhalation Documented by: Bisacodyl (Dulcolax) 5 mg PO DAILY PRN PRN Reason: Constipation Dexamethasone (Decadron) 6 mg IVPUSH BEDTIME [facility] Stop: 06/08/20 21:01 Last Admin: 06/01/20 20:51 Dose: 6 mg Documented by: Diclofenac Sodium (Voltaren 1% Gel) 0 gm TOP BID PRN PRN Reason: joint pain Docusate Sodium (Colace) 100 mg PO BID PRN PRN Reason: Constipation Doxepin HCl (Sinequan) 50 mg PO BEDTIME [facility] Last Admin: 06/01/20 20:52 Dose: 50 mg Documented by: Enoxaparin Sodium (Lovenox) 40 mg SUBCUT BEDTIME [facility] Last Admin: 06/01/20 20:52 Dose: 40 mg Documented by: Doxycycline Hyclate 100 mg/ (Sodium Chloride) 100 mls @ 100 mls/hr IV Q12H [facility] Last Admin: 06/02/20 02:41 Dose: 100 mls/hr Documented by: [place] Carbonate (Lithobid) 300 mg PO DAILY [facility] Last Admin: 06/02/20 09:00 Dose: 300 mg Documented by: [place] Carbonate ([place] Carbonate) 150 mg PO DAILY [facility] Last Admin: 06/02/20 09:26 Dose: 150 mg Documented by: Lorazepam (Ativan) 1 mg IV Q6H PRN PRN Reason: Nausea/Vomiting Losartan Potassium (Cozaar) 100 mg PO DAILY [facility] Last Admin: 06/02/20 09:24 Dose: 100 mg Documented by: Morphine Sulfate (Morphine) 2 mg IVPUSH Q2H PRN PRN Reason: Pain (severe 7-10) Ondansetron HCl (Zofran Odt) 4 mg PO Q6H PRN PRN Reason: Nausea able to take PO Oxycodone HCl (Oxycodone) 10 mg PO Q4H PRN PRN Reason: Pain (moderate 4-6) Pantoprazole Sodium (Protonix) 40 mg PO ACBREAKFAST [facility] Last Admin: 06/02/20 07:25 Dose: 40 mg Documented by: Risperidone (Risperidal) 1 mg PO BEDTIME [facility] Last Admin: 06/01/20 20:52 Dose: 1 mg Documented by: Ropinirole HCl (Requip) 2 mg PO BEDTIME [facility] Last Admin: 06/01/20 20:52 Dose: 2 mg Documented by: Tamsulosin HCl (Flomax) 0.4 mg PO DAILY [facility] Last Admin: 06/02/20 09:23 Dose: 0.4 mg Documented by: Venlafaxine HCl (Effexor Xr) 300 mg PO DAILY [facility] Last Admin: 06/02/20 09:23 Dose: 300 mg Documented by: Discontinued Medications Acetaminophen (Tylenol) 650 mg PO Q4H PRN PRN Reason: Fever Greater Than 101 Acetaminophen (Tylenol) 650 mg PO Q4H PRN PRN Reason: Fever Greater Than 101 Dexamethasone (Decadron) 6 mg IVPUSH DAILY [facility] Stop: 06/08/20 09:01 Last Admin: 05/31/20 01:29 Dose: 6 mg Documented by: Sodium Chloride (Normal Saline) Confirm Administered Dose 100 mls @ as directed .ROUTE .K-MED ONE Stop: 05/31/20 02:06 Last Admin: 05/31/20 02:19 Dose: Not Given Documented by: Non-Formulary Medication (Acetylcysteine [Nac]) 600 mg PO DAILY [facility] - Exam General: Reports: Alert, Oriented, Cooperative, Mild Distress Lungs: Reports: Normal Respiratory Effort, Rales. Denies: Crackles, Rhonchi, Wheezing Cardiovascular: Reports: Regular Rate, Regular Rhythm, No Murmurs GI/Abdominal Exam: Soft, Non-Tender, No Organomegaly, No Distention Extremities: Non-Tender, No Pedal Edema
== END 2020-06-02 12:30 | disposition home or self-care (01) | DRG 177 ==
LOC: JP.ED 22:38 → JP.ICU 05-31 00:25 → JP.MS 05-31 22:41
PROVIDERS: ADMIT Hospitalist; ATTEND Hospitalist
PROC: 8E0ZXY6 Isolation (ICD-10-PCS; principal; 2020-05-31)
DX: U07.1 COVID-19 (principal); J12.82 Pneumonia due to coronavirus disease 2019; B94.8 Sequelae of other specified infectious and parasitic diseases; F15.10 Other stimulant abuse, uncomplicated; Z79.899 Other long term (current) drug therapy; H91.90 Unspecified hearing loss, unspecified ear; I10 Essential (primary) hypertension; G47.30 Sleep apnea, unspecified; N40.0 Benign prostatic hyperplasia without lower urinary tract symptoms; Z86.73 Personal history of transient ischemic attack (TIA), and cerebral infarction without residual deficits; F32.9 Major depressive disorder, single episode, unspecified; E66.9 Obesity, unspecified; Z90.49 Acquired absence of other specified parts of digestive tract
CPT/HCPCS: 36415; 36600; 71045; 71045-26; 80053; 81001; 82150; 82728; 82803; 83615; 83690; 84145; 85025; 85379; 85610; 86140; 87040; 93005; 94640; 99285; 99285-25; A9270-GY; J1100; J1650; J3490